=== PATIENT | male | born 1970 | race Caucasian/White ===

== ENCOUNTER 2023-09-27 20:21 | Inpatient (IN) | payer MEDICAID, OTHER ==
[~2023-09-27] VITALS: Ht 167.6 cm; Wt 108.4 kg
[2023-09-27 21:15] LABS: Basophils # (auto) 0.1 10 ^3/uL (0-0.2); Basophils % (auto) 0.9 % (0.0-2.0); Eosinophils # (auto) 0.3 10 ^3/uL (0-0.8); Hematocrit 48.1 % (41.0-53.0); Monocytes # (auto) 1.1 10 ^3/uL (0-1.3); White Blood Cell 13.2 10^3/uL (4.4-10.8)
[2023-09-27 21:16] LABS: Eosinophils % (auto) 2.2 % (0.0-7.0); Hemoglobin 15.6 g/dL (13.5-17.5); Lymphocytes # (auto) 1.3 10 ^3/uL (0.4-5.4); Lymphocytes % (auto) 9.7 % (10.0-50.0); Mean Corpuscular Hemoglobin 23.9 pg (28.0-32.0); Mean Corpuscular Hgb Conc. 32.3 g/dL (32.0-36.0); Monocytes % (auto) 8.3 % (0.0-12.0); Neutrophils # (auto) 10.4 10 ^3/uL (1.6-8.6); Neutrophils % (auto) 78.9 % (37.0-80.0); Nucleated Red Blood Cells % 0.2 %; Red Cell Distribution Width 18.2 % (11.8-14.3)
[2023-09-27 21:34] LABS: Alanine Aminotransferase 45 U/L (7-40); Albumin 4.1 g/dL (3.2-4.8); Alkaline Phosphatase 54 U/L (46-116); Anion Gap 9 (5-15); Aspartate Aminotransferase 28 U/L (13-40); BUN/Creatinine Ratio 6.3 (10.0-20.0); Bilirubin, Total 0.8 mg/dL (0.2-1.0); Blood Urea Nitrogen 6 mg/dL (9-23); Calcium 8.7 mg/dL (8.7-10.4); Carbon Dioxide 25 mmol/L (20-30); Chloride 107 mmol/L (98-107); Glucose 105 mg/dL (74-106); Lipase 28 U/L (12-53); Potassium 4.1 mmol/L (3.5-5.1); Sodium 141 mmol/L (136-145); Total Protein 6.7 g/dL (5.7-8.2)
[2023-09-27] MEDS: LIDOCAINE VISCOUS 2% 15ML UD PO ONE (23:21)
[2023-09-27] MEDS: MAALOX PLUS or MAALOX 30 ML PO ONE (23:21)
[2023-09-27] MEDS: ONDANSETRON HCL 4 MG/2 ML VIAL IM ONE (23:22)
[2023-09-27 23:30] VITALS: PULSE 92; RESP 16; O2SAT 98
[2023-09-28 01:25] LABS: Urine Bacteria None Seen /hpf (None Seen); Urine WBC None Seen /hpf (0 - 3)
[2023-09-28 01:32] LABS: Urine Blood Negative /uL (Negative); Urine Clarity Clear (Clear); Urine Color Light-Yellow (Yellow); Urine Hyaline Cast FEW /lpf (0 - 2); Urine Mucus FEW (None Seen); Urine Protein, UAD Negative (Negative); Urine Specific Gravity 1.016 (1.001-1.035); Urine Urobilinogen Normal (Negative); Urine pH 7.5 (5.0-9.0)
[2023-09-28] MEDS ORDERED: ZOFR4T PO ×2 (01:44→22:39)
[2023-09-28] MEDS ORDERED: ACET500T58 PO (01:44)
[2023-09-28] MEDS: HYDROcodone-ACET 5/325MG TAB PO ONE (01:52)
[2023-09-28] MEDS: MIDAZOLAM HCL 5 MG/ML-1ML VIAL IV ONE (05:37)
[2023-09-28] MEDS ORDERED: HYDROcodone-ACET 5/325MG TAB PO PRN (06:00)
[2023-09-28] MEDS ORDERED: NITROGLYCERIN 0.4 MG SL TAB SL PRN (06:00)
[2023-09-28] MEDS ORDERED: DOCUSATE SOD 100 MG CAP PO PRN (06:00)
[2023-09-28] MEDS ORDERED: metroNIDAZOLE 500MG/100ML 100 ML IV SCH (06:00)
[2023-09-28 06:56] LABS: Alanine Aminotransferase 43 U/L (7-40); Albumin 4.2 g/dL (3.2-4.8); Alkaline Phosphatase 56 U/L (46-116); Anion Gap 3 (5-15); Aspartate Aminotransferase 25 U/L (13-40); BUN/Creatinine Ratio 7.2 (10.0-20.0); Blood Urea Nitrogen 7 mg/dL (9-23); Calcium 8.6 mg/dL (8.5-10.1); Carbon Dioxide 31 mmol/L (20-30); Chloride 106 mmol/L (98-107); Glucose 93 mg/dL (74-106); Potassium 3.8 mmol/L (3.5-5.1); Sodium 140 mmol/L (136-145)
[2023-09-28 06:57] LABS: Bilirubin, Total 0.8 mg/dL (0.2-1.0); Total Protein 6.6 g/dL (5.7-8.2)
[2023-09-28 07:46] LABS: Basophils # (auto) 0.1 10 ^3/uL (0-0.2); Basophils % (auto) 0.5 % (0.0-2.0); Eosinophils # (auto) 0.3 10 ^3/uL (0-0.8); Eosinophils % (auto) 3.2 % (0.0-7.0); Hematocrit 45.9 % (41.0-53.0); Hemoglobin 14.7 g/dL (13.5-17.5); Lymphocytes # (auto) 1.9 10 ^3/uL (0.4-5.4); Lymphocytes % (auto) 17.1 % (10.0-50.0); Mean Corpuscular Hemoglobin 23.7 pg (28.0-32.0); Mean Corpuscular Hgb Conc. 32.1 g/dL (32.0-36.0); Mean Corpuscular Volume 73.8 fL (80.0-100.0); Monocytes # (auto) 1.2 10 ^3/uL (0-1.3); Monocytes % (auto) 10.7 % (0.0-12.0); Neutrophils # (auto) 7.5 10 ^3/uL (1.6-8.6); Neutrophils % (auto) 68.5 % (37.0-80.0); Nucleated Red Blood Cells % 0.3 %; Red Blood Cells 6.22 10^6/uL (4.5-5.90); White Blood Cell 10.9 10^3/uL (4.4-10.8)
[2023-09-28 08:15] VITALS: PULSE 82; RESP 18; O2SAT 96
[2023-09-28] MEDS ORDERED: metroNIDAZOLE 500 MG TAB PO SCH (14:00)
[2023-09-28] MEDS ORDERED: PIPERACILLIN-TAZOB 3.375GM 100 ML IV SCH (18:00)
[2023-09-28] MEDS: PIPERACILLIN-TAZOB 3.375GM 100 ML IV ONE (18:40)
[2023-09-28 19:30] VITALS: PULSE 88; RESP 16; O2SAT 96
[2023-09-28 22:00] VITALS: PULSE 61
[2023-09-28 22:24] VITALS: PULSE 85; RESP 18; O2SAT 95
[2023-09-28] MEDS ORDERED: OMEP1CAP70 PO (22:39)
[2023-09-29] VITALS (9 sets, daily range): BP systolic 123–161; BP diastolic 58–98; PULSE 73–91; RESP 16–18; TEMP 97.6–106.6; O2SAT 93–95
[2023-09-29] MEDS: ONDANSETRON HCL 4 MG/2 ML VIAL IV PRN (00:37)
[2023-09-29] MEDS: PIPERACILLIN-TAZOB 3.375GM 100 ML IV SCH (00:37)
[2023-09-29] MEDS: MORPHINE SULFATE INJ 2 MG/ml SYRG IV PRN (00:38)
[2023-09-29 06:12] LABS: Eosinophils # (auto) 0.6 10 ^3/uL (0-0.8); Hemoglobin 15.5 g/dL (13.5-17.5); Monocytes # (auto) 1.1 10 ^3/uL (0-1.3)
[2023-09-29 06:14] LABS: Basophils # (auto) 0 10 ^3/uL (0-0.2); Basophils % (auto) 0.4 % (0.0-2.0); Eosinophils % (auto) 5.8 % (0.0-7.0); Hematocrit 47.7 % (41.0-53.0); Lymphocytes # (auto) 1.6 10 ^3/uL (0.4-5.4); Lymphocytes % (auto) 15.9 % (10.0-50.0); Mean Corpuscular Hemoglobin 24.1 pg (28.0-32.0); Mean Corpuscular Hgb Conc. 32.4 g/dL (32.0-36.0); Mean Corpuscular Volume 74.4 fL (80.0-100.0); Monocytes % (auto) 10.2 % (0.0-12.0); Neutrophils % (auto) 67.7 % (37.0-80.0); Red Blood Cells 6.41 10^6/uL (4.5-5.90); Red Cell Distribution Width 18.2 % (11.8-14.3); White Blood Cell 10.3 10^3/uL (4.4-10.8)
[2023-09-29 06:19] LABS: Partial Thromboplastin Time 27.6 SEC (24.5-34.5); Prothrombin Time 10.6 sec (9.3-11.8)
[2023-09-29 06:21] LABS: Alanine Aminotransferase 46 U/L (7-40); Albumin 4.2 g/dL (3.2-4.8); Alkaline Phosphatase 54 U/L (46-116); Anion Gap 9 (5-15); Aspartate Aminotransferase 27 U/L (13-40); BUN/Creatinine Ratio 8.8 (10.0-20.0); Blood Urea Nitrogen 10 mg/dL (9-23); Calcium 9.2 mg/dL (8.7-10.4); Carbon Dioxide 29 mmol/L (20-30); Chloride 103 mmol/L (98-107); Glucose 77 mg/dL (74-106); Potassium 3.9 mmol/L (3.5-5.1); Sodium 141 mmol/L (136-145)
[2023-09-29 06:22] LABS: Total Protein 6.8 g/dL (5.7-8.2)
[2023-09-29] MEDS: SODIUM CHLORIDE 0.9% 1,000 ML IV SCH (16:00)
[2023-09-29] MEDS: ACETAMINOPHEN 325 MG TAB PO PRN (20:44)
[2023-09-29] MEDS: TEMAZEPAM 15 MG CAP PO ONE (22:55)
[2023-09-30] VITALS (9 sets, daily range): BP systolic 133–150; BP diastolic 79–94; PULSE 73–93; RESP 15–20; TEMP 97.5–98.8; O2SAT 91–95
[2023-09-30] MEDS ORDERED: GASTROGRAFIN 120 ML SOL ONE (15:09)
[2023-10-01] VITALS (10 sets, daily range): BP systolic 117–138; BP diastolic 78–86; PULSE 73–97; RESP 17–20; TEMP 97.1–99.1; O2SAT 92–96
[2023-10-02] VITALS (7 sets, daily range): BP systolic 125–144; BP diastolic 79–94; PULSE 68–89; RESP 18–20; TEMP 97.9–98.8; O2SAT 95–97
[2023-10-02] MEDS ORDERED: DOCU-265 PO (09:41)
== END 2023-10-02 13:30 | disposition home or self-care (01) | DRG 247 ==
LOC: ER 20:21 → EDBD 20:21 → TELE 09-28 05:58 → TELE-CENTR 09-28 22:22
PROVIDERS: ADMIT Internal Medicine; ATTEND Internal Medicine
PROC: 0D9670Z Drainage of Stomach with Drainage Device, Via Natural or Artificial Opening (ICD-10-PCS; principal; 2023-09-29)
DX: K56.600 Partial intestinal obstruction, unspecified as to cause (principal); A08.4 Viral intestinal infection, unspecified; D48.118 Desmoid tumor of other site; D72.829 Elevated white blood cell count, unspecified; E66.01 Morbid (severe) obesity due to excess calories; I10 Essential (primary) hypertension; Z86.19 Personal history of other infectious and parasitic diseases; Z68.38 Body mass index [BMI] 38.0-38.9, adult; Z79.899 Other long term (current) drug therapy
CPT/HCPCS: 36415; 70450; 71045; 74176; 74250; 80053; 81001; 83605; 83690; 83880; 85025; 85610; 85730; 93005; 96365; 96372; 96375; G0378; J2250; J2405; J2543

== ENCOUNTER 2024-02-07 20:24 | Inpatient (IN) | payer MEDICAID, SELFPAY ==
[~2024-02-07] VITALS: Ht 167.6 cm; Wt 107.6 kg
[~2024-02-07 20:24] MED LIST: DOCU-265 PO; OMEP1CAP70 PO; ZOFR4T PO
[2024-02-07] MEDS: ONDANSETRON HCL 4 MG/2 ML VIAL IV ONE (20:51)
[2024-02-07 20:56] LABS: Urine WBC None Seen /hpf (0 - 3)
[2024-02-07 21:09] LABS: Urine Bacteria FEW /hpf (None Seen); Urine Blood Negative /uL (Negative); Urine Clarity Clear (Clear); Urine Color Colorless (Yellow); Urine Protein, UAD Negative (Negative); Urine Specific Gravity 1.006 (1.001-1.035); Urine Urobilinogen Normal (Negative)
[2024-02-07 21:31] LABS: Basophils # (auto) 0.1 10 ^3/uL (0-0.2); Basophils % (auto) 0.9 % (0.0-2.0); Eosinophils # (auto) 0.6 10 ^3/uL (0-0.8); Eosinophils % (auto) 6.3 % (0.0-7.0); Hematocrit 52.8 % (41.0-53.0); Hemoglobin 17.4 g/dL (13.5-17.5); Lymphocytes # (auto) 2.4 10 ^3/uL (0.4-5.4); Mean Corpuscular Hgb Conc. 32.9 g/dL (32.0-36.0); Mean Corpuscular Volume 72.8 fL (80.0-100.0); Monocytes # (auto) 0.9 10 ^3/uL (0-1.3); Neutrophils # (auto) 5.6 10 ^3/uL (1.6-8.6); Neutrophils % (auto) 58.8 % (37.0-80.0); Nucleated Red Blood Cells % 0.1 %; Platelet Count (auto) 311 10^3/uL (140-450); Red Blood Cells 7.25 10^6/uL (4.5-5.90); Red Cell Distribution Width 19.4 % (11.8-14.3); White Blood Cell 9.5 10^3/uL (4.4-10.8)
[2024-02-07 21:52] LABS: Alanine Aminotransferase 47 U/L (7-40); Albumin 4.9 g/dL (3.2-4.8); Alkaline Phosphatase 60 U/L (46-116); Anion Gap 6 (5-15); Aspartate Aminotransferase 56 U/L (13-40); Bilirubin, Total 0.7 mg/dL (0.2-1.0); Blood Urea Nitrogen 10 mg/dL (9-23); Calcium 9.4 mg/dL (8.7-10.4); Carbon Dioxide 27 mmol/L (20-31); Chloride 108 mmol/L (98-107); Glucose 98 mg/dL (74-106); Lipase 38 U/L (12-53); Sodium 141 mmol/L (136-145)
[2024-02-07 21:53] LABS: Total Protein 7.6 g/dL (5.7-8.2)
[2024-02-07 22:10] LABS: BUN/Creatinine Ratio 8.5 (10.0-20.0)
[2024-02-07] MEDS: IOHEXOL 300 MG/ML 100ML BOTTLE IJ ONE (22:28)
[2024-02-07] MEDS: SODIUM CHLORIDE 0.9% 1,000 ML IV ONE ×2 (22:33→23:45)
[2024-02-07] MEDS: MORPHINE SULFATE 4 MG/ML SYR/VIAL IV ONE (23:45)
[2024-02-08] VITALS (7 sets, daily range): BP systolic 117–123; BP diastolic 71–81; PULSE 67–77; RESP 16–20; TEMP 97.8–98.3; O2SAT 93–97
[2024-02-08] MEDS: ONDANSETRON HCL 4 MG/2 ML VIAL IV ONE
[2024-02-08] MEDS ORDERED: hydrALAZINE HCL 20 MG/ML VL IV PRN ×2 (03:30→04:30)
[2024-02-08] MEDS ORDERED: ONDANSETRON HCL 4 MG/2 ML VIAL IV PRN (03:45)
[2024-02-08] MEDS: amLODIPine BESYLATE 5 MG TAB PO SCH (03:57)
[2024-02-08] MEDS: SENNA 8.6 MG TAB PO ONE (03:57)
[2024-02-08] MEDS: PANTOPRAZOLE 40 MG/10 ML VIAL INJ IV ONE (03:57)
[2024-02-08 05:14] LABS: COVID19 ANTIGEN SOFIA FIA NEGATIVE (NEGATIVE)
[2024-02-08 05:27] LABS: Basophils # (auto) 0.1 10 ^3/uL (0-0.2); Hemoglobin 16.5 g/dL (13.5-17.5); Monocytes # (auto) 0.8 10 ^3/uL (0-1.3); Neutrophils # (auto) 6.1 10 ^3/uL (1.6-8.6)
[2024-02-08 05:29] LABS: Basophils % (auto) 0.8 % (0.0-2.0); Eosinophils # (auto) 0.7 10 ^3/uL (0-0.8); Eosinophils % (auto) 7.2 % (0.0-7.0); Hematocrit 50.8 % (41.0-53.0); Lymphocytes # (auto) 1.9 10 ^3/uL (0.4-5.4); Lymphocytes % (auto) 20.3 % (10.0-50.0); Mean Corpuscular Hemoglobin 23.8 pg (28.0-32.0); Mean Corpuscular Hgb Conc. 32.5 g/dL (32.0-36.0); Mean Corpuscular Volume 73.3 fL (80.0-100.0); Monocytes % (auto) 8.3 % (0.0-12.0); Neutrophils % (auto) 63.4 % (37.0-80.0); Nucleated Red Blood Cells % 0.2 %; Platelet Count (auto) 277 10^3/uL (140-450); Red Blood Cells 6.93 10^6/uL (4.5-5.90); Red Cell Distribution Width 18.8 % (11.8-14.3); White Blood Cell 9.6 10^3/uL (4.4-10.8)
[2024-02-08 05:36] LABS: INR 1.1 (0.9-1.15); Partial Thromboplastin Time 29.6 SEC (24.5-34.5); Prothrombin Time 11.6 sec (9.3-11.8)
[2024-02-08 05:39] LABS: Alanine Aminotransferase 41 U/L (7-40); Albumin 4.4 g/dL (3.2-4.8); Alkaline Phosphatase 54 U/L (46-116); Anion Gap 5 (5-15); Aspartate Aminotransferase 47 U/L (13-40); BUN/Creatinine Ratio 8.6 (10.0-20.0); Blood Urea Nitrogen 9 mg/dL (9-23); Carbon Dioxide 26 mmol/L (20-31); Chloride 109 mmol/L (98-107); Glucose 94 mg/dL (74-106); Lipase 34 U/L (12-53); Potassium 4.1 mmol/L (3.5-5.1); Sodium 140 mmol/L (136-145)
[2024-02-08 05:40] LABS: Total Protein 6.9 g/dL (5.7-8.2)
[2024-02-08] MEDS: PANTOPRAZOLE 40 MG/10 ML VIAL INJ IV SCH (10:37)
[2024-02-08] MEDS: KETOROLAC TROMETH 30 MG/ML 1ML VIAL IV ONE (18:49)
[2024-02-08] MEDS ORDERED: SENNA 8.6 MG TAB PO SCH (22:00)
[2024-02-09] VITALS (8 sets, daily range): BP systolic 117–148; BP diastolic 73–90; PULSE 69–94; RESP 16–20; TEMP 97.5–98.1; O2SAT 92–95
[2024-02-09] MEDS: ACETAMINOPHEN 500 MG TAB PO PRN (13:32)
[2024-02-09] MEDS ORDERED: AML5T PO (14:44)
[2024-02-09 16:10] LABS: Basophils # (auto) 0 10 ^3/uL (0-0.2); Lymphocytes # (auto) 1.3 10 ^3/uL (0.4-5.4); Neutrophils # (auto) 6.2 10 ^3/uL (1.6-8.6); Nucleated Red Blood Cells % 0.2 %
[2024-02-09 16:12] LABS: Basophils % (auto) 0.4 % (0.0-2.0); Eosinophils # (auto) 0.6 10 ^3/uL (0-0.8); Eosinophils % (auto) 6.2 % (0.0-7.0); Hemoglobin 18.4 g/dL (13.5-17.5); Lymphocytes % (auto) 14.9 % (10.0-50.0); Mean Corpuscular Hemoglobin 23.6 pg (28.0-32.0); Mean Corpuscular Hgb Conc. 32.3 g/dL (32.0-36.0); Mean Corpuscular Volume 73.2 fL (80.0-100.0); Monocytes # (auto) 0.8 10 ^3/uL (0-1.3); Monocytes % (auto) 8.7 % (0.0-12.0); Neutrophils % (auto) 69.8 % (37.0-80.0); Platelet Count (auto) 342 10^3/uL (140-450); Red Blood Cells 7.79 10^6/uL (4.5-5.90); Red Cell Distribution Width 19.5 % (11.8-14.3); White Blood Cell 8.8 10^3/uL (4.4-10.8)
[2024-02-09 16:31] LABS: Alanine Aminotransferase 58 U/L (7-40); Alkaline Phosphatase 67 U/L (46-116); Anion Gap 7 (5-15); Aspartate Aminotransferase 52 U/L (13-40); Blood Urea Nitrogen 12 mg/dL (9-23); Calcium 10.1 mg/dL (8.7-10.4); Carbon Dioxide 27 mmol/L (20-31); Chloride 107 mmol/L (98-107); Glucose 85 mg/dL (74-106); Potassium 4.2 mmol/L (3.5-5.1); Sodium 141 mmol/L (136-145); Total Protein 8.2 g/dL (5.7-8.2)
[2024-02-09] MEDS: SODIUM CHLORIDE 0.9% 500 ML IV ONE (17:45)
[2024-02-10 11:08] LABS: T3 Total 1.02 ng/mL (0.60-1.81)
[2024-02-10 11:09] LABS: Free T4 (Free Thyroxine) 1.22 ng/dL (0.89-1.76)
== END 2024-02-09 18:55 | disposition home or self-care (01) | DRG 566 ==
LOC: ER 20:24 → WEST WING 02-08 03:44 → OVERFLOW 02-08 03:44 → WEST WING 02-08 10:05
PROVIDERS: ADMIT Internal Medicine; ATTEND Internal Medicine
PROC: 0D9670Z Drainage of Stomach with Drainage Device, Via Natural or Artificial Opening (ICD-10-PCS; principal; 2024-02-08)
DX: D48.114 Desmoid tumor, intraabdominal (principal); K27.9 Peptic ulcer, site unspecified, unspecified as acute or chronic, without hemorrhage or perforation; B96.81 Helicobacter pylori [H. pylori] as the cause of diseases classified elsewhere; I10 Essential (primary) hypertension; Z20.822 Contact with and (suspected) exposure to COVID-19; R74.8 Abnormal levels of other serum enzymes; I16.0 Hypertensive urgency; E66.01 Morbid (severe) obesity due to excess calories; Z68.38 Body mass index [BMI] 38.0-38.9, adult; K42.9 Umbilical hernia without obstruction or gangrene; F10.20 Alcohol dependence, uncomplicated; Z82.49 Family history of ischemic heart disease and other diseases of the circulatory system; Z82.3 Family history of stroke; Y90.9 Presence of alcohol in blood, level not specified
CPT/HCPCS: 36415; 71045; 74177; 74250; 80053; 81001; 82306; 82607; 83036; 83690; 84439; 84443; 84480; 85025; 85610; 85730; 87426; 96360; 96361; 99291; G0378; J1885; J2405; J2470

== ENCOUNTER 2024-02-15 20:20 | Inpatient (IN) | payer SELFPAY ==
[~2024-02-15] VITALS: Ht 167.6 cm; Wt 100.9 kg
[~2024-02-15 20:20] MED LIST changes: +AML5T PO
--- NOTE | 2024-02-15 20:52 | ED.PDOC ---
GI ASSESSMENT HPI Comments 53 year old male came to ER via EMS due to abdominal pain. 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 Was admitted here last Feb 08, 2024 for the same. Patient being followed by a surgeon at [facility]. Patient few hours ago started having diffuse abdominal pain with episodes of nausea and vomiting again Chief Complaint: Abdominal Pain Time Seen by MD: 20:21 Primary Care Provider: Dr. Pop Allergies: Coded Allergies: Latex (Verified Allergy, Unknown, 02/15/24) Home Meds Active Scripts Amlodipine Besylate (NORVASC TABLET) 5 Mg Tb, 5 MG PO DAILY for 30 Days, #30 TAB 2 Refills Prov:ALAINA BAILEY RESIDENT 02/09/24 Docusate Sodium (Docusate Sodium) 100 Mg Cap, 100 MG PO BID for 10 Days, #20 CAP 1 Refill Prov:MO RAYMOND DO 10/02/23 Reported Medications Omeprazole (Omeprazole Dr) 20 Mg Cap, 1 CAP PO DAILY 09/28/23 Ondansetron Odt 4MG Tab (ZOFRAN PO) 4 Mg Tb, 1 TAB PO BID PRN for NAUSEA / VOMITING 09/28/23 Mode of Arrival: EMS Past Medical History PAST MEDICAL HISTORY: HTN Past Medical History (Other): 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 Surgical History: Hernia Repair Family History Family History: Reviewed,noncontributory to illness Social History Smoker: Non-Smoker Alcohol: Denies ETOH Use Drugs: Denies Drug Use Lives In: Home Constitutional: denies: chills, diaphoresis, fatigue, fever, malaise, sweats, weakness, others EENTM: denies: blurred vision, double vision, ear bleeding, ear discharge, ear drainage, ear pain, ear ringing, eye pain, eye redness, hearing loss, mouth pain, mouth swelling, nasal discharge, nose bleeding, nose congestion, nose pain, photophobia, tearing, throat pain, throat swelling, voice changes, others Respiratory: denies: cough, hemoptysis, orthopnea, SOB at rest, shortness of breath, SOB with excertion, stridor, wheezing, others Cardiovascular: denies: chest pain, dizzy spells, diaphoresis, Dyspnea on exertion, edema, irregular heart beat, left arm pain, lightheadedness, palpi tations, PND, syncope, others Gastrointestinal: reports: abdominal pain, nausea, vomiting; denies: abdomen distended, blood streaked bowels, constipated, diarrhea, dysphagia, difficulty swallowing, hematemesis, melena, poor appetite, poor fluid intake, rectal bleeding, rectal pain, others Genitourinary: denies: burning, dysuria, flank pain, frequency, hematuria, incontinence, penile discharge, penile sore, pain, testicle pain, testicle swelling, urgency, others Neurological: denies: dizziness, fainting, headache, left sided numbness, left sided weakness, numbness, paresthesia, pre-existing deficit, right sided numbness, right sided weakness, seizure, speech problems, tingling, tremors, weakness, others Musculoskeletal: denies: back pain, gout, joint pain, joint swelling, muscle pain, muscle stiffness, neck pain, others Integumetry: denies: bruises, change in color, change in hair/nails, dryness, laceration, lesions, lumps, rash, wounds, others Allergic/Immunocompromised: denies: Difficulty Healing, Frequent Infections, Hives, Itching, others Hematologic/Lymphatic: denies: anemia, blood clots, easy bleeding, easy bruising, swollen glands, others Endocrine: denies: excessive hunger, excessive sweating, excessive thirst, excessive urination, flushing, intolerance to cold, intolerance to heat, unexplained weight gain, unexplained weight loss, others Psychiatric: denies: anxiety, bipolar disorder, depression, hopeless, panic disorder, schizophrenia, sleepless, suicidal, others Physical Exam General Appearance: No Apparent Distress, Normal HEENT: Normal ENT Inspection, Pharynx Normal, TMs Normal Neck: Full Range of Motion, Non-Tender, Normal, Normal Inspection Respiratory: Chest Non-Tender, Lungs Clear, No Accessory Muscle Use, No Respiratory Distress, Normal Breath Sounds Cardiovascular: No Edema, No JVD, No Murmur, No Gallop, Normal Peripheral Pulses, Regular Rate/Rhythm Breast Exam: Deferred Gastrointestinal: Diffuse, Distended, No Organomegaly, No Pulsatile Mass, Normal Bowel Sounds, Soft, Tenderness Genitalia: Deferred Pelvic: Deferred Rectal: Deferred Extremities: No calf tenderness, Normal capillary refill, Normal inspection, Normal range of motion, Non-tender, No pedal edema Musculoskeletal : Apperance: Normal Neurologic: Alert, 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 Was a procedure done?: No GI differential Dx Differential Diagnosis: Bowel Obstruction, Diverticular disease, Gastritis/PUD, Gastroenteritis, Inflammatory BD, Dehydration X-Ray, Labs, Meds, VS Vital Signs Date Time Temp Pulse Resp B/P (MAP) Pulse Ox O2 Delivery O2 Flow Rate FiO2 02/16/24 00:23 65 16 116/83 02/15/24 21:22 72 16 142/93 02/15/24 21:00 74 18 98 Room Air* 0 21 02/15/24 21:00 74 18 154/98 (116) 98 02/15/24 20:59 72 18 154/98 02/15/24 20:29 97.6 88 20 135/93 (107) 95 Lab Test 02/15/24 20:34 Range/Units White Blood Count 15.9 #H 4.4-10.8 10^3/uL Red Blood Count 7.79 H 4.5-5.90 10^6/uL Hemoglobin 18.1 H 13.5-17.5 g/dL Hematocrit 58.2 H 41.0-53.0 % Mean Corpuscular Volume 74.7 L 80.0-100.0 fL Mean Corpuscular Hemoglobin 23.2 L 28.0-32.0 pg Mean Corpuscular Hemoglobin Concent 31.1 L 32.0-36.0 g/dL Red Cell Distribution Width 19.7 H 11.8-14.3 % Platelet Count 291 140-450 10^3/uL Mean Platelet Volume 8.2 6.9-10.8 fL Neutrophils (%) (Auto) 85.7 H 37.0-80.0 % Lymphocytes (%) (Auto) 7.0 L 10.0-50.0 % Monocytes (%) (Auto) 4.8 0.0-12.0 % Eosinophils (%) (Auto) 2.2 0.0-7.0 % Basophils (%) (Auto) 0.3 0.0-2.0 % Neutrophils # (Auto) 13.6 H 1.6-8.6 10 ^3/uL Lymphocytes # (Auto) 1.1 0.4-5.4 10 ^3/uL Monocytes # (Auto) 0.8 0-1.3 10 ^3/uL Eosinophils # (Auto) 0.4 0-0.8 10 ^3/uL Basophils # (Auto) 0 0-0.2 10 ^3/uL Nucleated Red Blood Cells 0.1 % Sodium Level 139 136-145 mmol/L Potassium Level 4.8 3.5-5.1 mmol/L Chloride Level 106 98-107 mmol/L Carbon Dioxide Level 26 20-31 mmol/L Anion Gap 7 5-15 Blood Urea Nitrogen 9 9-23 mg/dL Creatinine 1.20 0.700-1.30 mg/dL Glomerular Filtration Rate Calc 73 >90 mL/min BUN/Creatinine Ratio 7.5 L 10.0-20.0 Serum Glucose 99 74-106 mg/dL Calcium Level 10.0 8.7-10.4 mg/dL Total Bilirubin 1.3 H 0.2-1.0 mg/dL Aspartate Amino Transferase (AST) 29 13-40 U/L Alanine Aminotransferase (ALT) 49 H 7-40 U/L Alkaline Phosphatase 63 46-116 U/L Total Protein 8.0 5.7-8.2 g/dL Albumin 5.2 H 3.2-4.8 g/dL Lipase 33 12-53 U/L Current Medications Medications (Trade) Dose Ordered Sig/Charles Route Start Time Stop Time Status Last Admin Sodium Chloride 1,000 ml @ 1,000 mls/hr Q1H ONCE IV 02/15/24 20:30 02/15/24 21:29 DC 02/15/24 20:53 Ondansetron HCl (Zofran) 4 mg ONCE ONCE IV 02/15/24 20:30 02/15/24 20:31 DC 02/15/24 20:59 Morphine Sulfate 4 mg ONCE ONCE IV 02/15/24 20:30 02/15/24 20:31 DC 02/15/24 20:59 Ondansetron HCl (Zofran) 4 mg ONCE ONCE IV 02/15/24 23:45 02/15/24 23:52 DC 02/16/24 00:24 Morphine Sulfate 4 mg ONCE ONCE IV 02/15/24 23:45 02/15/24 23:52 DC 02/16/24 00:23 Time of 1ST Reevaluation: 20:50 Reevaluation 1ST: Unchanged Patient Education/Counseling: Diagnosis, Treatment Family Education/Counseling: No Family Present Departure 1 Departure Time of Disposition: 00:27 (Patient presented with abdominal pain that was concerning for possible appendicits, gastritis, cholecystitis, colitis, gastroenteritis, sbo, or orther possible surgical emergency. Data: 1. I ordered and reviewed the result of at least 3 labs including a CBC, BMP, and Urinalysis. 2. I independently interpreted the following tests: CT Abdoment and Pelvis is concerning for small bowel obstruction .Risk:This patient has a high risk of morbidity due to further diagnostic testing or treatment and may suffer from an acute abdominal process disorder. Workup reveals small-bowel obstruction and patient should be admitted for further workup. and possible expert consultation. ) Impression: Primary Impression: Small bowel obstruction Additional Impression: Abdominal pain Qualified Codes: R10.84 - Generalized abdominal pain Disposition: ADMITTED INPATIENT Admit to: Med Surg Condition: Guarded Critical Care Note Critical Care Time?: Yes Critical care comment: Intractable abdominal pain Authorized and Performed by: Katelyn Soriano MD Total critical care time: Approximately 48 minutes Due to a high probability of clinically significant, life threatening deterioration, the patient required my highest level of preparedness to intervene emergently and I personally spent this critical care time directly and personally managing the patient. This critical care time included obtaining a history; examining the patient; pulse oximetry; ordering and review of studies; arranging urgent treatment with development of a management plan; evaluation of patient's response to treatment; frequent reassessment; and, discussions with other providers. This critical care time was performed to assess and manage the high probability of imminent, life-threatening deterioration that could result in multi-organ failure. It was exclusive of separately billable procedures and treating other patients and teaching time. Please see my other sections and the rest of the note for further information on patient assessment and treatment. Stability Stability form required: No Heart Score Heart Score: Heart Score Response (Comments) Value History N/A 0 EKG N/A 0 Age N/A 0 Risk Factors N/A 0 Troponin N/A 0 Total 0 I personally scribed for KATELYN SORIANO MD ([email or web address]) on 02/15/24 at 20:52. Electronically submitted by Sonny Felipe ([facility]). KATELYN SORIANO MD Feb 15, 2024 20:52
[2024-02-15] MEDS: SODIUM CHLORIDE 0.9% 1,000 ML IV ONE (20:53)
[2024-02-15] MEDS: ONDANSETRON HCL 4 MG/2 ML VIAL IV ONE (20:59)
[2024-02-15] MEDS: MORPHINE SULFATE 4 MG/ML SYR/VIAL IV ONE (20:59)
[2024-02-15 21:00] VITALS: PULSE 74; RESP 18; O2SAT 98
[2024-02-15 21:06] LABS: Hemoglobin 18.1 g/dL (13.5-17.5); Lymphocytes # (auto) 1.1 10 ^3/uL (0.4-5.4); Mean Corpuscular Volume 74.7 fL (80.0-100.0); Nucleated Red Blood Cells % 0.1 %
[2024-02-15 21:07] LABS: Basophils # (auto) 0 10 ^3/uL (0-0.2); Basophils % (auto) 0.3 % (0.0-2.0); Eosinophils # (auto) 0.4 10 ^3/uL (0-0.8); Eosinophils % (auto) 2.2 % (0.0-7.0); Mean Corpuscular Hemoglobin 23.2 pg (28.0-32.0); Mean Corpuscular Hgb Conc. 31.1 g/dL (32.0-36.0); Monocytes # (auto) 0.8 10 ^3/uL (0-1.3); Monocytes % (auto) 4.8 % (0.0-12.0); Neutrophils # (auto) 13.6 10 ^3/uL (1.6-8.6); Neutrophils % (auto) 85.7 % (37.0-80.0); Platelet Count (auto) 291 10^3/uL (140-450); Red Blood Cells 7.79 10^6/uL (4.5-5.90); Red Cell Distribution Width 19.7 % (11.8-14.3); White Blood Cell 15.9 10^3/uL (4.4-10.8)
--- NOTE | 2024-02-15 21:08 | DVH ---
EXAM: XY CHEST PORTABLE TECHNIQUE: Single frontal chest radiograph CLINICAL HISTORY: epigastric pain COMPARISON: XY CHEST XRAY 1 VIEW on DOS: 02/08/24, XY CHEST XRAY 1 VIEW on DOS: 09/28/23 Findings/Impression: Frontal chest radiograph demonstrates no acute osseous or superficial soft tissue abnormalities. The trachea is midline. The cardiac silhouette and mediastinum are within normal limits. Mild low lung volumes. No pneumothorax, pleural effusions, or consolidations.
[2024-02-15 21:12] LABS: Hematocrit 58.2 % (41.0-53.0)
[2024-02-15 21:22] LABS: Alanine Aminotransferase 49 U/L (7-40); Albumin 5.2 g/dL (3.2-4.8); Alkaline Phosphatase 63 U/L (46-116); Anion Gap 7 (5-15); Aspartate Aminotransferase 29 U/L (13-40); BUN/Creatinine Ratio 7.5 (10.0-20.0); Bilirubin, Total 1.3 mg/dL (0.2-1.0); Blood Urea Nitrogen 9 mg/dL (9-23); Carbon Dioxide 26 mmol/L (20-31); Chloride 106 mmol/L (98-107); Glucose 99 mg/dL (74-106); Lipase 33 U/L (12-53); Potassium 4.8 mmol/L (3.5-5.1); Sodium 139 mmol/L (136-145)
[2024-02-15] MEDS: IOHEXOL 300 MG/ML 100ML BOTTLE IJ ONE (21:46)
--- NOTE | 2024-02-15 22:30 | DVH ---
CLINICAL HISTORY: abdominal pain TECHNIQUE: CT of the abdomen and pelvis was performed with intravenous contrast. This exam was perfor med according to our departmental dose optimization program. Up-to-date CT equipment and radiation do se reduction techniques are utilized as appropriate. WID: COMPARISON: CT CT AB PEL WITH IV CON ONLY on DOS: 02/07/24 FINDINGS: Lower Thorax: Normal-sized heart without pericardial effusion. The lung bases are clear. Liver and Biliary system: Unremarkable. Spleen: Unremarkable. Adrenal Glands and Kidneys: Unremarkable. Pancreas and Retroperitoneum: Unremarkable. Aorta and Major Vessels: Aortoiliac vessels are patent and normal caliber with mild calcified atheros clerotic plaque. Bowel, Mesentery and Peritoneal space: Normal appendix. Normal caliber large bowel. There is a segmen t of dilated mid to distal small bowel with transition in the mid abdomen to the left of midline on s eries 601 image 31. There is focal wall thickening of the small bowel at the transition point ( serie s 602, image 91) . There is a central mesenteric mass with lobulated and spiculated margins and conta ining calcification again noted measuring 3.9 x 2.8 cm on series 2, image 62. There is no free air o r loculated fluid collection. There is mild ascites within an umbilical hernia. There is no pneumatos is intestinalis . Pelvis: Unremarkable. Abdominal wall and Osseous Structures: There is a small umbilical hernia containing mesenteric fat an d mild ascites. There are surgical clips and soft tissue from prior bilateral inguinal hernia repair. Mild lower thoracic and lumbar spondylosis. No destructive osseous lesion. IMPRESSION: 1. Persistent small-bowel obstruction of a mid to distal segment of small bowel with transition point in the mid abdomen to the left of midline. There is focal wall thickening at transition point for wh ich a small-bowel mass is a possibility. 2. 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
[2024-02-16] VITALS (7 sets, daily range): BP systolic 143–145; BP diastolic 69–82; PULSE 69–97; RESP 18–21; TEMP 98.3–98.8; O2SAT 90–98
[2024-02-16] MEDS: MORPHINE SULFATE 4 MG/ML SYR/VIAL IV ONE (00:23)
[2024-02-16] MEDS: ONDANSETRON HCL 4 MG/2 ML VIAL IV ONE (00:24)
[2024-02-16] MEDS ORDERED: ACETAMINOPHEN 325 MG TAB PO PRN (00:45)
[2024-02-16] MEDS ORDERED: HYDROcodone-ACET 5/325MG TAB PO PRN (00:45)
[2024-02-16] MEDS ORDERED: hydrALAZINE HCL 20 MG/ML VL IV PRN (00:45)
[2024-02-16] MEDS: cefTRIAXone 1GM/50ML D5W 50 ML IV ONE (01:26)
[2024-02-16] MEDS: SODIUM CHLORIDE 0.9% 1,000 ML IV SCH ×2 (01:26→11:15)
[2024-02-16] MEDS: metroNIDAZOLE 500MG/100ML 100 ML IV ONE (02:03)
--- NOTE | 2024-02-16 03:27 | DVH ---
Examination: CXR1 Clinical Indication: NGT-PLACEMENT Comparison: None. Technique: Frontal radiograph of the chest was obtained. Findings: NG tube noted at appropriate position with tip in stomach. No obvious pulmonary infiltrates or pleural effusion. Chronic lung changes seen. There is no pneumothorax. The cardio mediastinal silhouette appears enlarged. No acute osseous pathology. Degenerative changes noted in visualized spine. Impression: 1. No obvious pulmonary infiltrates or pleural effusion. 2. Mild cardiomegaly. 3. Clinical correlation with follow-up radiograph is recommended. Electronically Signed 02/16/2024 03:19 Debra Azul
--- NOTE | 2024-02-16 05:56 | DVHHP2 ---
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 Patient was admitted here last February 08, 2024 for the same symptoms, being followed by a surgeon at [facility]. Patient reports symptoms progressively get worse with diffuse abdominal pain, associated nausea, vomiting, rating pain 10/10 numeric scale, getting worse that prompted this visit. Patient was seen and evaluated in the ED, laboratory data shows WBC 15.9, platelets 291, sodium 131, potassium 4.8, BUN 9, creatinine 1.20, glucose 99, albumin 5.2, lipase 33, total bilirubin 1.3, AST 29, ALT 49, blood pressure 142/93, pulse 72, temperature 97.6 F, O2 saturation 98% on room air. Abdomen/pelvis CT revealing persistent small-bowel obstruction of a mid to distal segment of small bowel with transition point in the mid abdomen to the left of midline; there is focal wall thickening at transition point for which a small bowel mass is a possibility; mesenteric mass with lobulated and spiculated portions and containing calcification which could reflect a carcinoid tumor metastasis. Patient was started on IV antibiotic regimen Flagyl, please see medication orders section in the computer. On my assessment, patient denied chest pain, no headache, no dizziness, no diaphoresis, no shortness of breath, no nausea, no vomiting, no fever, no chills. Patient was admitted for further evaluation and medical management. Past Medical History HTN, 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 Past Surgical History Hernia Repair Family History Reviewed, noncontributory to the management of this case. Past Social History The patient lives at home, denies smoking, alcohol or illicit drugs abuse. Review of Systems Constitutional: No: Fever, Chills, Sweats, Weakness, Malaise, Other Eyes: No: Pain, Vision change, Conjunctivae inflammation, Eyelid inflammation, Other, Redness ENT: No: Ear pain, Ear discharge, Nose pain, Nose discharge, Nose congestion, Mouth pain, Mouth swelling, Throat pain, Throat swelling, Other Respiratory: No: Cough, Dry, Shortness of breath, SOB with excertion, Wheezing, Hemoptysis, Pleuritic Pain, Sputum, Wheezing, Other Cardiovascular: No: Chest Pain, Palpitations, Orthopnea, Paroxysmal Noc. Dyspnea, Edema, Lt Headedness, Other Gastrointestinal: Nausea, Vomiting, Abdominal Pain; No: Diarrhea, Constipation, Melena, Hematochezia, Other Genitourinary: No Dysuria, No Frequency, No Incontinence, No Hematuria, No Retention, No Other Musculoskeletal: No: other, neck pain, shoulder pain, arm pain, back pain, hand pain, leg pain, foot pain Skin: No: Rash, Lesions, Jaundice, Bruising, Other Neurological: No: Weakness, Numbness, Incoordination, Change in speech, Confusion, Seizures, Other Allergies: Coded Allergies: Latex (Verified Allergy, Unknown, 02/15/24) Medications Current Medications Medications Dose Ordered Sig/Charles Route Start Time Stop Time Status Last Admin Dose Admin Hydralazine HCl 10 mg Q6HP PRN IV 02/16/24 00:45 Ceftriaxone Sodium 50 ml @ 100 mls/hr DAILY@2100 IV 02/16/24 21:00 Metronidazole 100 ml @ 100 mls/hr Q8HR IV 02/16/24 06:00 Sodium Chloride 1,000 ml @ 60 mls/hr [id number] IV 02/16/24 00:45 02/16/24 01:26 60 MLS/HR Acetaminophen/ Hydrocodone Bitart 1 tab Q4HP PRN PO 02/16/24 00:45 Ondansetron HCl 4 mg Q4HP PRN IV 02/16/24 00:45 Acetaminophen 650 mg Q6HP PRN PO 02/16/24 00:45 Morphine Sulfate 2 mg Q4HPRN PRN IV 02/16/24 00:45 Exam Vital Signs Vital Signs Date Time Temp Pulse Resp B/P (MAP) Pulse Ox O2 Delivery O2 Flow Rate FiO2 02/16/24 03:27 74 19 153/86 02/16/24 02:00 90 02/15/24 21:00 Room Air* 0 21 02/15/24 20:29 97.6 General Appearance: Alert, Oriented X3, Cooperative, No acute distress HEENT: Atraumatic, PERRLA, EOMI, Mucous membr. moist/pink Respiratory: Normal air movement Cardiovascular: Regular rate, Normal S1, Normal S2, No murmurs Abdominal: Normal bowel sounds, Soft, No hepatospenomegaly, No masses, Other (Reports tenderness) Extremities: No clubbing, No cyanosis, No edema, Normal pulses, No tenderness/swelling Skin: No rashes, No breakdown, No significant lesion Neuro: Normal gait, Normal speech, Strength at 5/5 X4 ext, Normal tone, Sensation intact, Cranial nerves 3-12 NL, Reflexes 2+ Psych/Mental Status: Mental status NL, Mood NL Labs/Xrays Labs Test 02/15/24 20:34 Range/Units White Blood Count 15.9 #H 4.4-10.8 10^3/uL Red Blood Count 7.79 H 4.5-5.90 10^6/uL Hemoglobin 18.1 H 13.5-17.5 g/dL Hematocrit 58.2 H 41.0-53.0 % Mean Corpuscular Volume 74.7 L 80.0-100.0 fL Mean Corpuscular Hemoglobin 23.2 L 28.0-32.0 pg Mean Corpuscular Hemoglobin Concent 31.1 L 32.0-36.0 g/dL Red Cell Distribution Width 19.7 H 11.8-14.3 % Platelet Count 291 140-450 10^3/uL Mean Platelet Volume 8.2 6.9-10.8 fL Neutrophils (%) (Auto) 85.7 H 37.0-80.0 % Lymphocytes (%) (Auto) 7.0 L 10.0-50.0 % Monocytes (%) (Auto) 4.8 0.0-12.0 % Eosinophils (%) (Auto) 2.2 0.0-7.0 % Basophils (%) (Auto) 0.3 0.0-2.0 % Neutrophils # (Auto) 13.6 H 1.6-8.6 10 ^3/uL Lymphocytes # (Auto) 1.1 0.4-5.4 10 ^3/uL Monocytes # (Auto) 0.8 0-1.3 10 ^3/uL Eosinophils # (Auto) 0.4 0-0.8 10 ^3/uL Basophils # (Auto) 0 0-0.2 10 ^3/uL Nucleated Red Blood Cells 0.1 % Sodium Level 139 136-145 mmol/L Potassium Level 4.8 3.5-5.1 mmol/L Chloride Level 106 98-107 mmol/L Carbon Dioxide Level 26 20-31 mmol/L Anion Gap 7 5-15 Blood Urea Nitrogen 9 9-23 mg/dL Creatinine 1.20 0.700-1.30 mg/dL Glomerular Filtration Rate Calc 73 >90 mL/min BUN/Creatinine Ratio 7.5 L 10.0-20.0 Serum Glucose 99 74-106 mg/dL Calcium Level 10.0 8.7-10.4 mg/dL Total Bilirubin 1.3 H 0.2-1.0 mg/dL Aspartate Amino Transferase (AST) 29 13-40 U/L Alanine Aminotransferase (ALT) 49 H 7-40 U/L Alkaline Phosphatase 63 46-116 U/L Total Protein 8.0 5.7-8.2 g/dL Albumin 5.2 H 3.2-4.8 g/dL Lipase 33 12-53 U/L PATIENT: TESSA MIELS ACCT: [id number] UNIT: [id number] : 1970 LOC: ER ROOM / BED: / AGE / SEX: 53 / M ADM STATUS: REG ER SERVICE 20 ORDERING PHYSICIAN: KATELYN SORIANO MD PROCEDURE(s): ABPLIV - CT AB PEL WITH IV CON ONLY REASON: abdominal pain ORDER NUMBER(s): [id number], ACCESSION NUMBER(s): [id number] CLINICAL HISTORY: abdominal pain TECHNIQUE: CT of the abdomen and pelvis was performed with intravenous contrast. This exam was performed according to our departmental dose optimization program. Up-to-date CT equipment and radiation dose reduction techniques are utilized as appropriate. WID: COMPARISON: CT CT AB PEL WITH IV CON ONLY on DOS: 02/07/24 FINDINGS: Lower Thorax: Normal-sized heart without pericardial effusion. The lung bases are clear. Liver and Biliary system: Unremarkable. Spleen: Unremarkable. Adrenal Glands and Kidneys: Unremarkable. Pancreas and Retroperitoneum: Unremarkable. Aorta and Major Vessels: Aortoiliac vessels are patent and normal caliber with mild calcified atherosclerotic plaque. Bowel, Mesentery and Peritoneal space: Normal appendix. Normal caliber large bowel. There is a segment of dilated mid to distal small bowel with transition in the mid abdomen to the left of midline on series 601 image 31. There is focal wall thickening of the small bowel at the transition point ( series 602, image 91) . There is a central mesenteric mass with lobulated and spiculated margins and containing calcification again noted measuring 3.9 x 2.8 cm on series 2, image 62. There is no free air or loculated fluid collection. There is mild ascites within an umbilical hernia. There is no pneumatosis intestinalis . Pelvis: Unremarkable. Abdominal wall and Osseous Structures: There is a small umbilical hernia containing mesenteric fat and mild ascites. There are surgical clips and soft tissue from prior bilateral inguinal hernia repair. Mild lower thoracic and lumbar spondylosis. No destructive osseous lesion. IMPRESSION: 1. Persistent small-bowel obstruction of a mid to distal segment of small bowel with transition point in the mid abdomen to the left of midline. There is focal wall thickening at transition point for which a small-bowel mass is a possibility. 2. 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 ORDERING PHYSICIAN: KATELYN SORIANO MD PROCEDURE(s): CXR1 - CHEST XRAY 1 VIEW REASON: NGT-PLACEMENT ORDER NUMBER(s): [id number], ACCESSION NUMBER(s): [id number] Examination: CXR1 Clinical Indication: NGT-PLACEMENT Comparison: None. Technique: Frontal radiograph of the chest was obtained. Findings: NG tube noted at appropriate position with tip in stomach. No obvious pulmonary infiltrates or pleural effusion. Chronic lung changes seen. There is no pneumothorax. The cardio mediastinal silhouette appears enlarged. No acute osseous pathology. Degenerative changes noted in visualized spine. Impression: 1. No obvious pulmonary infiltrates or pleural effusion. 2. Mild cardiomegaly. 3. Clinical correlation with follow-up radiograph is recommended. Assessment/Plan Assessment/Plan Small bowel obstruction Abdominal pain Leukocytosis, unspecified Generalized abdominal pain Plan 1. Admit to telemetry unit 2. Breathing treatment 3. Pain control management 4. IV antibiotic management 5. Management of fluids and electrolytes 6. Consultation for surgery/hospitalist 7. Diagnostic test abdomen/pelvis CT 8. DVT prophylaxis-on SCDs 9. Repeat labs CBC, CMP in a.m. 10. Home medication reviewed and reconciled 11. Continue with current medical management 12. Treatment plan discussed with patient and RN. Patient verbalized understanding. Plan discussed with: Patient, Other (RN) My Orders Orders - OLYA LUJAN DNP Procedure Category Date Status Time * Surgical Consult CONS 02/16/24 Transmitted Hydralazine Injection PHA 02/16/24 In Process (Apresoline Inject 00:45 Ceftriaxone 1gm/50ml PHA 02/16/24 In Process D5w (Rocephin) 21:00 Metronidazole PHA 02/16/24 In Process 500mg/100ml (Flagyl 06:00 Allergies MICHAEL 02/16/24 In Process 00:41 Code Status CODE 02/16/24 Transmitted 00:41 Sodium Chloride 0.9% PHA 02/16/24 In Process 00:45 Oxygen Per Hour RT 02/16/24 Transmitted 00:41 Hydrocodone-Acet PHA 02/16/24 In Process 5/325mg Tab ([place] 00:45 Ondansetron Hcl PHA 02/16/24 In Process (Zofran) 00:45 Complete Blood Count LAB 02/17/24 Verified 04:00 Comprehensive LAB 02/17/24 Verified Metabolic Panel 04:00 Npo (Nothing By DIET 02/16/24 Transmitted Mouth) Diet Breakfast Condition: Serious MICHAEL 02/16/24 In Process 00:41 Acetaminophen Tablet PHA 02/16/24 In Process (Tylenol Tablet) 00:45 Bedrest With Bathroom MICHAEL 02/16/24 In Process Privileg 00:41 Morphine Sulfate PHA 02/16/24 In Process Injection 00:45 Sequential [facility] 02/16/24 In Process Compression Device Admit ADMIT 02/16/24 Verified 05:55 Nitroglycerin [facility] 02/16/24 Verified Sublingual (Ntrostat 06:00 Morphine Sulfate PHA 02/16/24 Verified Injection 06:00 Notify Of Changes [facility] 02/16/24 Verified From Base 05:55 Credit Administration Officer For [facility] 02/16/24 Verified 24 Hours 05:55 Emergency Dysrhythmia [facility] 02/16/24 Verified Protocol 05:55 Rhythm Strips Once [facility] 02/16/24 Verified Every Shift 05:55 Oxygen By Nasal RT 02/16/24 Verified Cannula 05:55 Problem List: (1) Small bowel obstruction (2) Abdominal pain (3) Leukocytosis, unspecified (4) Generalized abdominal pain Date of Service: Feb 16, 2024 Billing Provider: OLYA LUJAN DNP Common Visit Codes: [id number]-[id number] INP/OBS CARE (HIGH) OLYA LUJAN DNP Feb 16, 2024 05:56
[2024-02-16] MEDS ORDERED: NITROGLYCERIN 0.4 MG SL TAB SL PRN (06:00)
[2024-02-16] MEDS ORDERED: MORPHINE SULFATE INJ 2 MG/ml SYRG IV PRN ×2 (06:00→11:30)
[2024-02-16] MEDS: metroNIDAZOLE 500MG/100ML 100 ML IV SCH (06:05)
--- NOTE | 2024-02-16 12:04 | DVHPN2 ---
Progress Note Date Seen: Feb 16, 2024 Medical Necessity Reason Pt with a Central, PICC or Fol: No Subjective Review of Systems Pt feels well. No complaints. tolerated CLD Objective vital signs Vital Sign Date Time Temp Pulse Resp B/P (MAP) Pulse Ox O2 Delivery O2 Flow Rate FiO2 02/16/24 11:31 74 12 145/76 (99) 94 02/16/24 07:20 Room Air* 0 21 02/15/24 20:29 97.6 Total Intake and Output 02/15/24 02/15/24 02/16/24 15:00 23:00 07:00 Intake Total 1000 ml 450 ml Balance 1000 ml 450 ml medications Current Medications Medications Dose Ordered Sig/Charles Route Start Time Stop Time Status Last Admin Dose Admin Hydralazine HCl 10 mg Q6HP PRN IV 02/16/24 00:45 Ondansetron HCl 4 mg Q4HP PRN IV 02/16/24 00:45 Morphine Sulfate 2 mg Q4HPRN PRN IV 02/16/24 00:45 Nitroglycerin 0.4 mg Q5MINP PRN SL 02/16/24 06:00 Morphine Sulfate 2 mg Q30M PRN IV 02/16/24 06:00 Sodium Chloride 1,000 ml @ 100 mls/hr Q10H IV 02/16/24 11:15 UNV Enoxaparin Sodium 40 mg DAILY SC 02/17/24 10:00 UNV Morphine Sulfate 2 mg Q2HPRN PRN IV 02/16/24 11:30 UNV Pantoprazole Sodium 40 mg DAILY IV 02/17/24 10:00 UNV Examination AFVSS. Abdomen soft, obese ND and NT laboratory and microbiology Laboratory Tests 02/15/24 20:34 Test 02/15/24 20:34 Range/Units Serum Glucose 99 74-106 mg/dL Problem List/Assessment/Plan Problems(with codes): (1) Pancreatic pseudocyst Problem List/Assessment/Plan Advance diet. If tolerates, may discharge home. Pt will have elevated exocrine hormonone levels secondary to pancreatic pesudocyst Follow up with PCP and obtain referral to [address] [place] [address] enter GI for pancreatic pseudocyst endoscopic drainage. Have to wait 6 weeks for pseudocyst drainage. Plan discussed with: Patient My Orders My Orders Orders - MARIBEL MARIE MD Procedure Category Date Status Time Sodium Chloride 0.9% PHA 02/16/24 Logged 11:15 Ng To Lis MICHAEL 02/16/24 In Process 11:12 Enoxaparin Sodium PHA 02/17/24 Logged (Lovenox) 10:00 Morphine Sulfate PHA 02/16/24 Logged Injection 11:30 Pantoprazole PHA 02/17/24 Logged (Protonix) 10:00 MARIBEL MARIE MD Feb 16, 2024 12:04
[2024-02-16] MEDS: MORPHINE SULFATE INJ 2 MG/ml SYRG IV PRN (13:47)
--- NOTE | 2024-02-16 16:39 | DVHDS2 ---
Discharge Summary Date of Admission Feb 16, 2024 at 05:55 Date of Discharge: Feb 16, 2024 Admitting Diagnosis Small bowel obstruction Labs/Diagnostic Data: Laboratory Results Test 02/15/24 20:34 White Blood Count 15.9 10^3/uL (4.4-10.8) Red Blood Count 7.79 10^6/uL (4.5-5.90) Hemoglobin 18.1 g/dL (13.5-17.5) Hematocrit 58.2 % (41.0-53.0) Mean Corpuscular Volume 74.7 fL (80.0-100.0) Mean Corpuscular Hemoglobin 23.2 pg (28.0-32.0) Mean Corpuscular Hemoglobin Concent 31.1 g/dL (32.0-36.0) Red Cell Distribution Width 19.7 % (11.8-14.3) Platelet Count 291 10^3/uL (140-450) Mean Platelet Volume 8.2 fL (6.9-10.8) Neutrophils (%) (Auto) 85.7 % (37.0-80.0) Lymphocytes (%) (Auto) 7.0 % (10.0-50.0) Monocytes (%) (Auto) 4.8 % (0.0-12.0) Eosinophils (%) (Auto) 2.2 % (0.0-7.0) Basophils (%) (Auto) 0.3 % (0.0-2.0) Neutrophils # (Auto) 13.6 10 ^3/uL (1.6-8.6) Lymphocytes # (Auto) 1.1 10 ^3/uL (0.4-5.4) Monocytes # (Auto) 0.8 10 ^3/uL (0-1.3) Eosinophils # (Auto) 0.4 10 ^3/uL (0-0.8) Basophils # (Auto) 0 10 ^3/uL (0-0.2) Nucleated Red Blood Cells 0.1 % Sodium Level 139 mmol/L (136-145) Potassium Level 4.8 mmol/L (3.5-5.1) Chloride Level 106 mmol/L (98-107) Carbon Dioxide Level 26 mmol/L (20-31) Anion Gap 7 (5-15) Blood Urea Nitrogen 9 mg/dL (9-23) Creatinine 1.20 mg/dL (0.700-1.30) Glomerular Filtration Rate Calc 73 mL/min (>90) BUN/Creatinine Ratio 7.5 (10.0-20.0) Serum Glucose 99 mg/dL (74-106) Calcium Level 10.0 mg/dL (8.7-10.4) Total Bilirubin 1.3 mg/dL (0.2-1.0) Aspartate Amino Transferase (AST) 29 U/L (13-40) Alanine Aminotransferase (ALT) 49 U/L (7-40) Alkaline Phosphatase 63 U/L (46-116) Total Protein 8.0 g/dL (5.7-8.2) Albumin 5.2 g/dL (3.2-4.8) Lipase 33 U/L (12-53) Other Laboratory Tests 02/15/24 20:34 Brief Hx & Hospital Course: 53-year-old male recently admitted for same, found to have some pancreatic pseudocyst with recurrent small-bowel obstruction. Seen by surgery today, who suggest transferred to [place] for higher level of care. Patient was given NG tube for decompression, have not pass gas. Per surgery patient with high- grade obstruction and would need transfer Condition at Discharge: Higher Level of Care Final Diagnosis/Problems List Pancreatic pseudocyst causing small bowel obstruction Secondary Diagnosis: Polycythemia vera Microcytosis Leukocytosis Transaminitis Discharge Disposition: Acute Care Facility SNF Discharge Reason For Transfer: Higher level of care 40 Discharge Statement: "Patient was advised to return to the ER or call 911 if any headaches, dizziness, shortness of breath, chest pain, abdominal pain, bleeding, fevers, or worsening of medical condition. Patient was counseled about treatment plan, medications, possible side effects, patientverbalized understanding. All questions were answered to the best of my ability. This discharge took greater then 30 minutes in planning, reviewing documentation, counseling the patient, and discussing with other team members." ASSESSMENT ASSESSMENT Assessment Pancreatic pseudocyst Grade small bowel obstruction Polycythemia vera likely from chronic hypoxia, other recent can not be ruled out Microcytosis Leukocytosis Transaminitis Surgery consult appreciated Patient to be transferred for higher level of care Continue with NG tube for decompression Zofran p.r.n. nausea Bowel regimen Can do small volume fluid challenge to evaluate social worker health services consult for higher level of care transfer Date of Service: Feb 16, 2024 Billing Provider: JASON TARANGO MD Common Visit Codes: 68029-GKR/OBS DISCH DAY >30min JASON TARANGO MD Feb 16, 2024 16:39
[2024-02-16] MEDS ORDERED: cefTRIAXone 1GM/50ML D5W 50 ML IV SCH (21:00)
--- NOTE | 2024-02-16 23:46 | DVHINCON2 ---
DATE OF CONSULTATION: 02/16/2024 REQUESTING PROVIDER: Edyta Pizarro DNP REASON FOR CONSULTATION: Small-bowel obstruction. HISTORY OF PRESENT ILLNESS: The patient is a 53-year-old male with a history of a desmoid tumor who came to the Emergency Department complaining of abdominal pain with associated abdominal distention/bloating, nausea and vomiting since yesterday. The patient stated that he has been persistently vomiting. He describes the emesis as food as well as black/dark material. Last week, he vomited blood. He is already established with Dr. Urena, surgical oncologist at [facility]. He had been following up and arrangements were being made for surgical intervention. In fact, he has been trying to get a hold of the office to make an appointment for followup to discuss his most recent MRI. His last bowel movement was yesterday. He last passed flatus yesterday as well. Currently, feels better. Denies fevers, chills, hemoptysis, hematemesis, bilious emesis, chest pain, shortness of breath, unintentional weight loss, night sweats, melena or hematochezia. Previously, he did have some dyspnea, but that has resolved. PAST MEDICAL HISTORY: Significant for obesity, desmoid tumor and hypertension. PAST SURGICAL HISTORY: Cataract surgery and bilateral inguinal hernia repair. MEDICATIONS: Amlodipine. ALLERGIES: No known drug allergies. SOCIAL HISTORY: Denies smoking cigarettes, alcohol or drug use, marijuana use or vaping. FAMILY HISTORY: Noncontributory. REVIEW OF SYSTEMS: NEUROLOGIC: Negative. PSYCHIATRIC: Negative. ENDOCRINE: Negative. ENT: Negative. CARDIOVASCULAR: Negative. PULMONARY: Negative. GASTROINTESTINAL: As above. GENITOURINARY: Negative. HEMATOLOGY/INFECTIOUS DISEASE: Negative. LYMPHATICS: Negative. MUSCULOSKELETAL: Negative. SKIN: Negative. PHYSICAL EXAMINATION: GENERAL: He is lying comfortably in a stretcher in ED1. He is calm, pleasant and in no distress. VITAL SIGNS: He is afebrile with stable vital signs with exception of hypertension. Normal heart rate with hypertension. NEUROLOGIC: Grossly intact, alert, awake, oriented x 3. HEENT: Normocephalic. Pupils equally round. Extraocular muscles intact. Trachea is midline. HEART: Normal heart rate. Hypertensive. LUNGS: Effortless breathing. Normal respiratory rate. Low oxygen saturation. ABDOMEN: Soft, mildly distended, nontender, with an incarcerated umbilical hernia. No palpable masses, hernias or visceromegaly. However, his body habitus significantly hinders examination. EXTREMITIES: No edema or tenderness. LABORATORY DATA: Review of his labs demonstrates white blood cell count 16, hemoglobin 18, hematocrit 58, platelets 291. Chemistry essentially remarkable for mildly elevated ALP and total bilirubin. CT scan of the abdomen and pelvis was reviewed, with corresponding report. There is evidence of a high-grade small-bowel obstruction with a mesenteric lesion and associated calcifications. There is also evidence of an umbilical hernia. Bilateral inguinal hernia repair. ASSESSMENT: A 53-year-old male with a high-grade small-bowel obstruction secondary to desmoid tumor. The patient is an established patient with Dr. Guidry from [facility]. 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 Leukocytosis, likely secondary to hemoconcentration. The patient has elevated hemoglobin and hematocrit. No source of infection. PLANS AND RECOMMENDATION: Recommend strict n.p.o., IV fluids, DVT and GI prophylaxis. No need for antibiotic therapy. Transfer the patient to [facility] under the care of Dr. Urena for surgical intervention. Thank you for allowing me to participate in the care of your patient. I will follow him with you. MD TOMAS Duong/SEGUN/PHANI TID: [id number] RECEIPT: [id number] MTDEl
[2024-02-17] VITALS (8 sets, daily range): BP systolic 123–150; BP diastolic 75–80; PULSE 56–74; RESP 17–21; TEMP 97.7–98.5; O2SAT 94–97
[2024-02-17 05:50] LABS: Basophils # (auto) 0.1 10 ^3/uL (0-0.2); Basophils % (auto) 0.8 % (0.0-2.0); Eosinophils # (auto) 0.6 10 ^3/uL (0-0.8); Eosinophils % (auto) 7.8 % (0.0-7.0); Hematocrit 50.8 % (41.0-53.0); Hemoglobin 16.2 g/dL (13.5-17.5); Lymphocytes # (auto) 1.4 10 ^3/uL (0.4-5.4); Lymphocytes % (auto) 17.2 % (10.0-50.0); Mean Corpuscular Hemoglobin 23.6 pg (28.0-32.0); Mean Corpuscular Hgb Conc. 31.9 g/dL (32.0-36.0); Monocytes # (auto) 0.7 10 ^3/uL (0-1.3); Monocytes % (auto) 8.6 % (0.0-12.0); Neutrophils # (auto) 5.3 10 ^3/uL (1.6-8.6); Neutrophils % (auto) 65.6 % (37.0-80.0); Nucleated Red Blood Cells % 0.1 %; Platelet Count (auto) 269 10^3/uL (140-450); Red Blood Cells 6.87 10^6/uL (4.5-5.90); Red Cell Distribution Width 19.3 % (11.8-14.3); White Blood Cell 8.1 10^3/uL (4.4-10.8)
[2024-02-17 05:53] LABS: Alanine Aminotransferase 31 U/L (7-40); Albumin 4.2 g/dL (3.2-4.8); Alkaline Phosphatase 51 U/L (46-116); Anion Gap 6 (5-15); Aspartate Aminotransferase 18 U/L (13-40); BUN/Creatinine Ratio 8.7 (10.0-20.0); Blood Urea Nitrogen 10 mg/dL (9-23); Calcium 9.1 mg/dL (8.7-10.4); Carbon Dioxide 28 mmol/L (20-31); Chloride 108 mmol/L (98-107); Glucose 83 mg/dL (74-106); Potassium 3.9 mmol/L (3.5-5.1); Sodium 142 mmol/L (136-145)
[2024-02-17 05:54] LABS: Bilirubin, Total 1.5 mg/dL (0.2-1.0); Total Protein 6.6 g/dL (5.7-8.2)
[2024-02-17] MEDS: PANTOPRAZOLE 40 MG/10 ML VIAL INJ IV SCH (09:20)
[2024-02-17] MEDS: ENOXAPARIN SOD 40 MG/0.4 ML SYRINGE SC SCH (09:20)
--- NOTE | 2024-02-17 18:38 | DVHPN2 ---
Progress Note Date Seen: Feb 17, 2024 Medical Necessity Reason Pt with a Central, PICC or Fol: No Subjective Review of Systems Pt was sitting comfortably in a chair with NGT clamped. Denies N/V. He states he has been receiving trays of liquids in spite of having orders to remain strict NPO and NGT to LCS. He admits to passign flatus and still has episodes of crampy abdominal pain. Remains bloated. Denied N/V Objective vital signs Vital Sign Date Time Temp Pulse Resp B/P (MAP) Pulse Ox O2 Delivery O2 Flow Rate FiO2 02/17/24 17:00 98.5 72 21 144/80 (101) 96 98.5 02/17/24 08:05 Nasal Cannula* 1 24 Total Intake and Output 02/16/24 02/16/24 02/17/24 15:00 23:00 07:00 Intake Total 340 ml 120 ml Output Total 275 ml 400 ml Balance 340 ml -155 ml -400 ml medications Current Medications Medications Dose Ordered Sig/Charles Route Start Time Stop Time Status Last Admin Dose Admin Hydralazine HCl 10 mg Q6HP PRN IV 02/16/24 00:45 Ondansetron HCl 4 mg Q4HP PRN IV 02/16/24 00:45 Morphine Sulfate 2 mg Q4HPRN PRN IV 02/16/24 00:45 02/16/24 22:12 2 MG Nitroglycerin 0.4 mg Q5MINP PRN SL 02/16/24 06:00 Morphine Sulfate 2 mg Q30M PRN IV 02/16/24 06:00 Sodium Chloride 1,000 ml @ 100 mls/hr Q10H IV 02/16/24 11:15 02/17/24 10:15 100 MLS/HR Enoxaparin Sodium 40 mg DAILY SC 02/17/24 10:00 02/17/24 09:20 40 MG Morphine Sulfate 2 mg Q2HPRN PRN IV 02/16/24 11:30 Pantoprazole Sodium 40 mg DAILY IV 02/17/24 10:00 02/17/24 09:20 40 MG Examination AFVSS. Abdomen soft, distended and NT laboratory and microbiology Laboratory Tests 02/17/24 05:16 Test 02/17/24 05:16 Range/Units Serum Glucose 83 74-106 mg/dL Problem List/Assessment/Plan Problems(with codes): (1) Small bowel obstruction Problem List/Assessment/Plan Advance diet. If tolerates, may discharge home. Pt will have elevated exocrine hormonone levels secondary to pancreatic pesudocyst Follow up with PCP and obtain referral to [address] [place] [address] enter GI for pancreatic pseudocyst endoscopic drainage. Have to wait 6 weeks for pseudocyst drainage. Plan discussed with: Patient My Orders My Orders Pt being transferred to [facility] under the care of Dr. Urena for HGSBO secondary to dermoid tumor. Continue strict NPO. IBF, NGT to LCS, DVT and GI prophylaxis. MARIBEL MARIE MD Feb 17, 2024 18:38
--- NOTE | 2024-02-17 19:52 | DVHPN2 ---
Subjective 53-year-old male with high-grade SBO, pending transferred to [facility], for surgical Oncology Patient pass flatus today, small trial of jello and water, no vomiting. Still no bowel movement. Pending transfer For more detail look at discharge summary 02/16/2024 Changes from previous H/P or p: No Changes Eyes: No Pain, No Vision change, No Conjunctivae inflammation, No Eyelid inflammation, No Other, No Redness ENT: No Ear pain, No Ear discharge, No Nose pain, No Nose discharge, No Nose congestion, No Mouth pain, No Mouth swelling, No Throat pain, No Throat swelling, No Other Cardiovascular: No Chest Pain, No Palpitations, No Orthopnea, No Paroxysmal Noc. Dyspnea, No Edema, No Lt Headedness, No Other Respiratory: No Cough, No Dry, No Shortness of breath, No SOB with excertion, No Wheezing, No Hemoptysis, No Pleuritic Pain, No Sputum, No Other Gastrointestinal: Nausea, Vomiting, Abdominal Pain; No Diarrhea, No Constipation, No Melena, No Hematochezia, No Other Genitourinary: No Dysuria, No Frequency, No Incontinence, No Hematuria, No Retention, No Other Musculoskeletal: No other, No neck pain, No shoulder pain, No arm pain, No back pain, No hand pain, No leg pain, No foot pain Skin: No Rash, No Lesions, No Jaundice, No Bruising, No Other Objective Vitals Vital Signs Date Time Temp Pulse Resp B/P (MAP) Pulse Ox O2 Delivery O2 Flow Rate FiO2 02/17/24 17:00 98.5 72 21 144/80 (101) 96 98.5 02/17/24 08:05 Nasal Cannula* 1 24 Intake/Output Intake and Output 02/17/24 04:00 Intake Total 640 ml Output Total 275 ml Balance 365 ml Intake Oral 120 ml IV Total 520 ml Output Urine Total 275 ml # Voids 2 Medications Current Medications Medications Dose Ordered Sig/Charles Route Start Time Stop Time Status Last Admin Dose Admin Hydralazine HCl 10 mg Q6HP PRN IV 02/16/24 00:45 Ondansetron HCl 4 mg Q4HP PRN IV 02/16/24 00:45 Morphine Sulfate 2 mg Q4HPRN PRN IV 02/16/24 00:45 02/16/24 22:12 2 MG Nitroglycerin 0.4 mg Q5MINP PRN SL 02/16/24 06:00 Morphine Sulfate 2 mg Q30M PRN IV 02/16/24 06:00 Sodium Chloride 1,000 ml @ 100 mls/hr Q10H IV 02/16/24 11:15 02/17/24 10:15 100 MLS/HR Enoxaparin Sodium 40 mg DAILY SC 02/17/24 10:00 02/17/24 09:20 40 MG Morphine Sulfate 2 mg Q2HPRN PRN IV 02/16/24 11:30 Pantoprazole Sodium 40 mg DAILY IV 02/17/24 10:00 02/17/24 09:20 40 MG Laboratory Results Laboratory Tests 02/17/24 05:16 Chemistry Test 02/17/24 05:16 Albumin 4.2 g/dL (3.2-4.8) Calcium Level 9.1 mg/dL (8.7-10.4) Total Protein 6.6 g/dL (5.7-8.2) LFT Test 02/17/24 05:16 Alanine Aminotransferase (ALT) 31 U/L (7-40) Alkaline Phosphatase 51 U/L (46-116) Aspartate Amino Transferase (AST) 18 U/L (13-40) Total Bilirubin 1.5 mg/dL (0.2-1.0) H Assessment/Plan Assessment/Plan Desmoid tumor High-grade SBO Transferred to [facility] for surgicalz Oncology Acceptinga physician Dr. Guidry Pending bed Oral intake challenge Bowel regimen Pain management Keep NG tube for now Plan discussed with: Patient My Orders Orders - JASON TARANGO MD Procedure Category Date Status Time * Second Butler CONS 02/17/24 Transmitted Consult Discharge DISCHARGE 02/17/24 Transmitted 13:55 Date of Service: Feb 17, 2024 Billing Provider: JASON TARANGO MD Common Visit Codes: [id number] INP/OBS CARE(HIGH) JASON TARANGO MD Feb 17, 2024 19:52
[2024-02-18] VITALS (7 sets, daily range): BP systolic 135–149; BP diastolic 71–86; PULSE 61–78; RESP 17–18; TEMP 97.9–98.6; O2SAT 93–98
--- NOTE | 2024-02-18 15:43 | DVHPN2 ---
Subjective 53-year-old male with high-grade SBO, pending transferred to [facility], for surgical Oncology Patient pass flatus today, small trial of jello and water, no vomiting. Still no bowel movement. Pending transfer. Patient to be kept NPO, we will start D5 half NS For more detail look at discharge summary 02/16/2024 Reviewed: Care Plan, H&P, Labs, Medications, Previous Orders, Radiology Changes from previous H/P or p: No Changes Eyes: No Pain, No Vision change, No Conjunctivae inflammation, No Eyelid inflammation, No Other, No Redness ENT: No Ear pain, No Ear discharge, No Nose pain, No Nose discharge, No Nose congestion, No Mouth pain, No Mouth swelling, No Throat pain, No Throat swelling, No Other Cardiovascular: No Chest Pain, No Palpitations, No Orthopnea, No Paroxysmal Noc. Dyspnea, No Edema, No Lt Headedness, No Other Respiratory: No Cough, No Dry, No Shortness of breath, No SOB with excertion, No Wheezing, No Hemoptysis, No Pleuritic Pain, No Sputum, No Other Gastrointestinal: Nausea, Vomiting, Abdominal Pain; No Diarrhea, No Constipation, No Melena, No Hematochezia, No Other Genitourinary: No Dysuria, No Frequency, No Incontinence, No Hematuria, No Retention, No Other Musculoskeletal: No other, No neck pain, No shoulder pain, No arm pain, No back pain, No hand pain, No leg pain, No foot pain Skin: No Rash, No Lesions, No Jaundice, No Bruising, No Other Objective Vitals Vital Signs Date Time Temp Pulse Resp B/P (MAP) Pulse Ox O2 Delivery O2 Flow Rate FiO2 02/18/24 13:09 98.5 73 18 142/79 (100) 95 98.5 02/18/24 08:00 Nasal Cannula* 1 24 Intake/Output Intake and Output 02/18/24 07:00 Intake Total 1000 ml Output Total 1870 ml Balance -870 ml IV Total 1000 ml Output Urine Total 970 ml Gastric Drainage Total 900 ml Exam Alert, oriented x3 PERRLA NG tube in place, to suction No JVD Clear breath sounds bilaterally S1-S2 regular rate and rhythm no murmur Abdomen distended, soft, nontender, bowel sounds normal Equal strength bilaterally on upper and lower extremities No lower extremity edema Medications Current Medications Medications Dose Ordered Sig/Charles Route Start Time Stop Time Status Last Admin Dose Admin Hydralazine HCl 10 mg Q6HP PRN IV 02/16/24 00:45 Ondansetron HCl 4 mg Q4HP PRN IV 02/16/24 00:45 Morphine Sulfate 2 mg Q4HPRN PRN IV 02/16/24 00:45 02/16/24 22:12 2 MG Nitroglycerin 0.4 mg Q5MINP PRN SL 02/16/24 06:00 Morphine Sulfate 2 mg Q30M PRN IV 02/16/24 06:00 Sodium Chloride 1,000 ml @ 100 mls/hr Q10H IV 02/16/24 11:15 02/18/24 13:15 100 MLS/HR Enoxaparin Sodium 40 mg DAILY SC 02/17/24 10:00 02/18/24 09:02 40 MG Morphine Sulfate 2 mg Q2HPRN PRN IV 02/16/24 11:30 Pantoprazole Sodium 40 mg DAILY IV 02/17/24 10:00 02/18/24 09:02 40 MG Laboratory Results Laboratory Tests 02/17/24 05:16 Labs and/or images reviewed: Labs reviewed by me, Image(s) reviewed by me Assessment/Plan Assessment/Plan Desmoid tumor High-grade SBO Transferred to [facility] for surgicalz Oncology Accepting physician Dr. Guidry Pending bed Keep NG tube to low intermittent suction Strict NPO Start D5 water half NS Surgical consult appreciated Plan discussed with: Patient Date of Service: Feb 18, 2024 Billing Provider: JASON TARANGO MD Common Visit Codes: [id number] INP/OBS CARE(HIGH) JASON TARANGO MD Feb 18, 2024 15:43
[2024-02-18] MEDS: D5W 5% 1,000 ML IV SCH (15:45)
--- NOTE | 2024-02-18 17:02 | DVHPN2 ---
Progress Note Date Seen: Feb 18, 2024 Medical Necessity Reason Pt with a Central, PICC or Fol: No Subjective Review of Systems Occasional episodes of pain. Denies N/V. Continues passing flatus. Denies BM Objective vital signs Vital Sign Date Time Temp Pulse Resp B/P (MAP) Pulse Ox O2 Delivery O2 Flow Rate FiO2 02/18/24 13:09 98.5 73 18 142/79 (100) 95 98.5 02/18/24 08:00 Nasal Cannula* 1 24 Total Intake and Output 02/17/24 02/17/24 02/18/24 15:00 23:00 07:00 Intake Total 1000 ml Output Total 900 ml 970 ml Balance 1000 ml -900 ml -970 ml medications Current Medications Medications Dose Ordered Sig/Charles Route Start Time Stop Time Status Last Admin Dose Admin Hydralazine HCl 10 mg Q6HP PRN IV 02/16/24 00:45 Ondansetron HCl 4 mg Q4HP PRN IV 02/16/24 00:45 Morphine Sulfate 2 mg Q4HPRN PRN IV 02/16/24 00:45 02/16/24 22:12 2 MG Nitroglycerin 0.4 mg Q5MINP PRN SL 02/16/24 06:00 Morphine Sulfate 2 mg Q30M PRN IV 02/16/24 06:00 Sodium Chloride 1,000 ml @ 100 mls/hr Q10H IV 02/16/24 11:15 02/18/24 13:15 100 MLS/HR Enoxaparin Sodium 40 mg DAILY SC 02/17/24 10:00 02/18/24 09:02 40 MG Morphine Sulfate 2 mg Q2HPRN PRN IV 02/16/24 11:30 Pantoprazole Sodium 40 mg DAILY IV 02/17/24 10:00 02/18/24 09:02 40 MG Dextrose 1,000 ml @ 75 mls/hr [id number] IV 02/18/24 15:45 Examination AFVSS. Abdomen soft, ND and NT. NGT with bilious fluid laboratory and microbiology Laboratory Tests 02/17/24 05:16 Test 02/17/24 05:16 Range/Units Serum Glucose 83 74-106 mg/dL Problem List/Assessment/Plan Problem List/Assessment/Plan NPO, IVF, NGT decompression, DVT and GI prophylaxis. Awaiting Txf ro [facility] under the care of Dr. Urena. Plan discussed with: Patient MARIBEL MARIE MD Feb 18, 2024 17:02
[2024-02-19] VITALS (8 sets, daily range): BP systolic 143–159; BP diastolic 73–84; PULSE 59–100; RESP 18–20; TEMP 97.6–98.3; O2SAT 93–100
[2024-02-19] MEDS: ONDANSETRON HCL 4 MG/2 ML VIAL IV PRN (05:09)
[2024-02-19 06:23] LABS: Basophils # (auto) 0.1 10 ^3/uL (0-0.2); Hemoglobin 16.6 g/dL (13.5-17.5); Neutrophils # (auto) 3.8 10 ^3/uL (1.6-8.6)
[2024-02-19 06:25] LABS: Eosinophils # (auto) 0.6 10 ^3/uL (0-0.8); Hematocrit 51.7 % (41.0-53.0); Lymphocytes # (auto) 1.3 10 ^3/uL (0.4-5.4); Lymphocytes % (auto) 20.8 % (10.0-50.0); Mean Corpuscular Hemoglobin 23.6 pg (28.0-32.0); Mean Corpuscular Volume 73.7 fL (80.0-100.0); Monocytes # (auto) 0.5 10 ^3/uL (0-1.3); Monocytes % (auto) 8.5 % (0.0-12.0); Neutrophils % (auto) 60.7 % (37.0-80.0); Nucleated Red Blood Cells % 0.2 %; Platelet Count (auto) 276 10^3/uL (140-450); Red Blood Cells 7.01 10^6/uL (4.5-5.90); Red Cell Distribution Width 18.9 % (11.8-14.3); White Blood Cell 6.2 10^3/uL (4.4-10.8)
[2024-02-19 06:30] LABS: Chloride 106 mmol/L (98-107); Potassium 4.4 mmol/L (3.5-5.1); Sodium 139 mmol/L (136-145)
[2024-02-19 06:31] LABS: Anion Gap 9 (5-15); Carbon Dioxide 24 mmol/L (20-31)
[2024-02-19 06:32] LABS: Calcium 9.1 mg/dL (8.7-10.4)
[2024-02-19 06:36] LABS: Glucose 73 mg/dL (74-106)
[2024-02-19 06:37] LABS: BUN/Creatinine Ratio 9.1 (10.0-20.0); Blood Urea Nitrogen 9 mg/dL (9-23)
[2024-02-19] MEDS ORDERED: TPN PER PHARMACY 0 ML IV SCH (10:30)
--- NOTE | 2024-02-19 10:32 | DVHPN2 ---
Progress Note Date Seen: Feb 19, 2024 Medical Necessity Reason Pt with a Central, PICC or Fol: No Subjective Review of Systems Pt seen earlier. He admitted to nausea. enies abdominal pain, vomiting, passing flatus or BM. C/O persistent HTN Objective vital signs Vital Sign Date Time Temp Pulse Resp B/P (MAP) Pulse Ox O2 Delivery O2 Flow Rate FiO2 02/19/24 09:00 97.6 59 20 155/73 (100) 95 97.6 02/18/24 20:00 Nasal Cannula* 1 24 Total Intake and Output 02/18/24 02/18/24 02/19/24 15:00 23:00 07:00 Intake Total 1200 ml 100 ml Output Total 1300 ml 750 ml Balance -100 ml -650 ml medications Current Medications Medications Dose Ordered Sig/Charles Route Start Time Stop Time Status Last Admin Dose Admin Hydralazine HCl 10 mg Q6HP PRN IV 02/16/24 00:45 Ondansetron HCl 4 mg Q4HP PRN IV 02/16/24 00:45 02/19/24 05:09 4 MG Morphine Sulfate 2 mg Q4HPRN PRN IV 02/16/24 00:45 02/19/24 05:20 2 MG Nitroglycerin 0.4 mg Q5MINP PRN SL 02/16/24 06:00 Morphine Sulfate 2 mg Q30M PRN IV 02/16/24 06:00 Sodium Chloride 1,000 ml @ 100 mls/hr Q10H IV 02/16/24 11:15 02/19/24 05:12 100 MLS/HR Enoxaparin Sodium 40 mg DAILY SC 02/17/24 10:00 02/18/24 09:02 40 MG Morphine Sulfate 2 mg Q2HPRN PRN IV 02/16/24 11:30 Pantoprazole Sodium 40 mg DAILY IV 02/17/24 10:00 02/18/24 09:02 40 MG Dextrose 1,000 ml @ 75 mls/hr [id number] IV 02/18/24 15:45 02/18/24 15:45 75 MLS/HR Examination AFVSS. Abdomen soft, obese, ND and NT. NGT with minimal bilious fluid output laboratory and microbiology Laboratory Tests 02/19/24 05:00 Test 02/19/24 05:00 Range/Units Serum Glucose 73 L 74-106 mg/dL Labs and/or images reviewed: Labs reviewed by me Problem List/Assessment/Plan Problems(with codes): (1) Small bowel obstruction Problem List/Assessment/Plan NPO, IVF, NGT decompression, DVT and GI prophylaxis. TPN. Awaiting Txf ro [facility] under the care of Dr. Urena. Lopressor 2.5 mg IV q 6 for HTN Plan discussed with: Patient MARIBEL MARIE MD Feb 19, 2024 10:32
[2024-02-19] MEDS ORDERED: DEXTROSE (50%) 50ML SYRG IV SCH (11:00)
[2024-02-19] MEDS: ACCU-CHEK COMFORT CURVE STRIP VI SCH (12:00)
[2024-02-19] MEDS: InsuLIN REG 1unit/0.01ml Soln (100units/ml) SC SCH (12:00)
[2024-02-19] MEDS: METOPROLOL TARTRATE 1MG/1ML-5ML VIAL IV SCH (13:07)
--- NOTE | 2024-02-19 15:08 | DVHPN2 ---
Subjective 53-year-old male with high-grade SBO, pending transferred to [facility], for surgical Oncology Patient pass flatus, strict n p.o. Still no bowel movement. Pending transfer. We will obtain PICC line and start TPN For more detail look at discharge summary 02/16/2024 Reviewed: Care Plan, H&P, Labs, Medications, Previous Orders, Radiology Changes from previous H/P or p: No Changes Eyes: No Pain, No Vision change, No Conjunctivae inflammation, No Eyelid inflammation, No Other, No Redness ENT: No Ear pain, No Ear discharge, No Nose pain, No Nose discharge, No Nose congestion, No Mouth pain, No Mouth swelling, No Throat pain, No Throat swelling, No Other Cardiovascular: No Chest Pain, No Palpitations, No Orthopnea, No Paroxysmal Noc. Dyspnea, No Edema, No Lt Headedness, No Other Respiratory: No Cough, No Dry, No Shortness of breath, No SOB with excertion, No Wheezing, No Hemoptysis, No Pleuritic Pain, No Sputum, No Other Gastrointestinal: Nausea, Vomiting, Abdominal Pain; No Diarrhea, No Constipation, No Melena, No Hematochezia, No Other Genitourinary: No Dysuria, No Frequency, No Incontinence, No Hematuria, No Retention, No Other Musculoskeletal: No other, No neck pain, No shoulder pain, No arm pain, No back pain, No hand pain, No leg pain, No foot pain Skin: No Rash, No Lesions, No Jaundice, No Bruising, No Other Objective Vitals Vital Signs Date Time Temp Pulse Resp B/P (MAP) Pulse Ox O2 Delivery O2 Flow Rate FiO2 02/19/24 14:02 65 143/82 02/19/24 13:00 98.1 18 100 98.1 02/18/24 20:00 Nasal Cannula* 1 24 Intake/Output Intake and Output 02/19/24 07:00 Intake Total 1300 ml Output Total 2050 ml Balance -750 ml Intake Oral 100 ml IV Total 1200 ml Output Urine Total 2050 ml Exam Alert, oriented x3 PERRLA NG tube in place, to suction No JVD Clear breath sounds bilaterally S1-S2 regular rate and rhythm no murmur Abdomen distended, soft, nontender, bowel sounds normal Equal strength bilaterally on upper and lower extremities No lower extremity edema Medications Current Medications Medications Dose Ordered Sig/Charles Route Start Time Stop Time Status Last Admin Dose Admin Ondansetron HCl 4 mg Q4HP PRN IV 02/16/24 00:45 02/19/24 05:09 4 MG Morphine Sulfate 2 mg Q4HPRN PRN IV 02/16/24 00:45 02/19/24 10:34 2 MG Nitroglycerin 0.4 mg Q5MINP PRN SL 02/16/24 06:00 Morphine Sulfate 2 mg Q30M PRN IV 02/16/24 06:00 Enoxaparin Sodium 40 mg DAILY SC 02/17/24 10:00 02/18/24 09:02 40 MG Morphine Sulfate 2 mg Q2HPRN PRN IV 02/16/24 11:30 Pantoprazole Sodium 40 mg DAILY IV 02/17/24 10:00 02/19/24 10:32 40 MG Dextrose 1,000 ml @ 75 mls/hr [id number] IV 02/18/24 15:45 02/19/24 10:35 75 MLS/HR Amino Acids 0 ml @ 0 mls/hr PER PHARMACY IV 02/19/24 10:30 Diagnostic Test (Pha) 1 strip Q6HR 02/19/24 12:00 Insulin Human Regular FOLLOW SLIDING SCALE Q6HR SC 02/19/24 12:00 Dextrose 50 ml UD IV 02/19/24 11:00 Laboratory Results Laboratory Tests 02/19/24 05:00 Chemistry Test 02/19/24 05:00 Calcium Level 9.1 mg/dL (8.7-10.4) Labs and/or images reviewed: Labs reviewed by me, Image(s) reviewed by me Assessment/Plan Assessment/Plan Desmoid tumor High-grade SBO Transferred to [facility] for surgicalz Oncology Acceptinga physician Dr. Guidry Pending bed Keep NG tube to low intermittent suction Strict NPO Start TPN Consult PICC We will allow slight hypertension Informed hospitalist if blood pressure above 170 SBP Surgical consult appreciated Plan discussed with: Patient My Orders Orders - JASON TARANGO MD Procedure Category Date Status Time D5w 5% (Dextrose 5%) PHA 02/18/24 In Process 15:45 Communication Order ORDERS 02/19/24 Transmitted 14:29 Date of Service: Feb 19, 2024 Billing Provider: JASON TARANGO MD Common Visit Codes: [id number] INP/OBS CARE(HIGH) JASON TARANGO MD Feb 19, 2024 15:08
[2024-02-19] MEDS: AMINO ACID INFUSION IN D10W 1,000 ML IV ONE (20:00)
[2024-02-20] VITALS (8 sets, daily range): BP systolic 130–152; BP diastolic 70–90; PULSE 54–86; RESP 18–20; TEMP 97.6–98.7; O2SAT 93–96
[2024-02-20 06:44] LABS: Alanine Aminotransferase 43 U/L (7-40); Albumin 4.3 g/dL (3.2-4.8); Alkaline Phosphatase 54 U/L (46-116); Anion Gap 9 (5-15); Aspartate Aminotransferase 33 U/L (13-40); Blood Urea Nitrogen 6 mg/dL (9-23); Calcium 9.4 mg/dL (8.7-10.4); Carbon Dioxide 26 mmol/L (20-31); Chloride 104 mmol/L (98-107); Glucose 94 mg/dL (74-106); Potassium 3.6 mmol/L (3.5-5.1); Sodium 139 mmol/L (136-145); Triglycerides 95 mg/dL (< 150)
[2024-02-20 06:45] LABS: Bilirubin, Total 1.9 mg/dL (0.2-1.0); Total Protein 6.9 g/dL (5.7-8.2)
--- NOTE | 2024-02-20 10:02 | DVHPN2 ---
Subjective 53-year-old male with high-grade SBO, pending transferred to [facility], for surgical Oncology Patient pass flatus, strict n p.o. Still no bowel movement. Pending transfer. Discussed with surgeon and patient regarding his stay and plan. Patient will stay until a bed available for his transfer to [facility] for surgical oncology. Patient has been NPO for 4 days, we will start PICC line placement and TPN. Nutrition consult. We will start IV antihypertensive with enalapril at scheduled injection as patient is strict NPO. Risks and benefits discussed with patient and he expressed understanding For more detail look at discharge summary 02/16/2024 Reviewed: Care Plan, H&P, Labs, Medications, Previous Orders, Radiology Changes from previous H/P or p: No Changes Eyes: No Pain, No Vision change, No Conjunctivae inflammation, No Eyelid inflammation, No Other, No Redness ENT: No Ear pain, No Ear discharge, No Nose pain, No Nose discharge, No Nose congestion, No Mouth pain, No Mouth swelling, No Throat pain, No Throat swelling, No Other Cardiovascular: No Chest Pain, No Palpitations, No Orthopnea, No Paroxysmal Noc. Dyspnea, No Edema, No Lt Headedness, No Other Respiratory: No Cough, No Dry, No Shortness of breath, No SOB with excertion, No Wheezing, No Hemoptysis, No Pleuritic Pain, No Sputum, No Other Gastrointestinal: Nausea, Vomiting, Abdominal Pain; No Diarrhea, No Constipation, No Melena, No Hematochezia, No Other Genitourinary: No Dysuria, No Frequency, No Incontinence, No Hematuria, No Retention, No Other Musculoskeletal: No other, No neck pain, No shoulder pain, No arm pain, No back pain, No hand pain, No leg pain, No foot pain Skin: No Rash, No Lesions, No Jaundice, No Bruising, No Other Objective Vitals Vital Signs Date Time Temp Pulse Resp B/P (MAP) Pulse Ox O2 Delivery O2 Flow Rate FiO2 02/20/24 05:00 97.8 58 18 130/70 (90) 96 97.8 02/19/24 20:00 Room Air* 0 21 Intake/Output Intake and Output 02/20/24 06:59 Intake Total 1000 ml Output Total 1350 ml Balance -350 ml Intake Oral 0 ml IV Total 1000 ml Output Urine Total 1350 ml # Voids 1 Exam Alert, oriented x3 PERRLA NG tube in place, to suction No JVD Clear breath sounds bilaterally S1-S2 regular rate and rhythm no murmur Abdomen distended, soft, nontender, bowel sounds normal Equal strength bilaterally on upper and lower extremities No lower extremity edema Medications Current Medications Medications Dose Ordered Sig/Charles Route Start Time Stop Time Status Last Admin Dose Admin Ondansetron HCl 4 mg Q4HP PRN IV 02/16/24 00:45 02/19/24 05:09 4 MG Morphine Sulfate 2 mg Q4HPRN PRN IV 02/16/24 00:45 02/19/24 21:11 2 MG Nitroglycerin 0.4 mg Q5MINP PRN SL 02/16/24 06:00 Morphine Sulfate 2 mg Q30M PRN IV 02/16/24 06:00 Enoxaparin Sodium 40 mg DAILY SC 02/17/24 10:00 02/20/24 09:54 40 MG Morphine Sulfate 2 mg Q2HPRN PRN IV 02/16/24 11:30 Pantoprazole Sodium 40 mg DAILY IV 02/17/24 10:00 02/20/24 09:54 40 MG Dextrose 1,000 ml @ 75 mls/hr [id number] IV 02/18/24 15:45 02/20/24 01:20 75 MLS/HR Amino Acids 0 ml @ 0 mls/hr PER PHARMACY IV 02/19/24 10:30 Diagnostic Test (Pha) 1 strip Q6HR 02/19/24 12:00 Insulin Human Regular FOLLOW SLIDING SCALE Q6HR SC 02/19/24 12:00 Dextrose 50 ml UD IV 02/19/24 11:00 Laboratory Results Laboratory Tests 02/19/24 05:00 02/20/24 05:35 Chemistry Test 02/20/24 05:35 Albumin 4.3 g/dL (3.2-4.8) Calcium Level 9.4 mg/dL (8.7-10.4) Magnesium Level 2.0 mg/dL (1.6-2.6) Phosphorus Level 3.0 mg/dL (2.4-5.1) Total Protein 6.9 g/dL (5.7-8.2) Lipid panel Test 02/20/24 05:35 Triglycerides Level 95 mg/dL (< 150) LFT Test 02/20/24 05:35 Alanine Aminotransferase (ALT) 43 U/L (7-40) H Alkaline Phosphatase 54 U/L (46-116) Aspartate Amino Transferase (AST) 33 U/L (13-40) Total Bilirubin 1.9 mg/dL (0.2-1.0) H Assessment/Plan Assessment/Plan Desmoid tumor High-grade SBO Hypertension Transferred to [facility] for surgicalz Oncology Acceptinga physician Dr. Guidry Pending bed Keep NG tube to low intermittent suction Strict NPO Start TPN Consult PICC Consult nutrition Start enalaprilat at 0.625 q.6 scheduled Informed hospitalist if blood pressure above 170 SBP Surgical consult appreciated Plan discussed with: Patient My Orders Orders - JASON TARANGO MD Procedure Category Date Status Time Communication Order ORDERS 02/19/24 Transmitted 14:29 * Dietary Consult CONS 02/20/24 Transmitted 09:47 Enalaprilat Injection PHA 02/20/24 Transmitted (Vasotec Injection 12:00 Date of Service: Feb 20, 2024 Billing Provider: JASON TARANGO MD Common Visit Codes: [id number] INP/OBS CARE(HIGH) JASON TARANGO MD Feb 20, 2024 10:02
[2024-02-20 12:34] LABS: INR 1.13 (0.9-1.15); Partial Thromboplastin Time 32.2 SEC (24.5-34.5); Prothrombin Time 11.9 sec (9.3-11.8)
[2024-02-20] MEDS: ENALAPRILAT 1.25 MG/ML-1ML VIAL IV SCH (15:37)
[2024-02-20] MEDS ORDERED: LIDOCAINE 1% (LOCAL ANESTH.) PF 5ml SDV ID ONE (17:15)
--- NOTE | 2024-02-20 20:20 | DVHPN2 ---
Progress Note Date Seen: Feb 20, 2024 Medical Necessity Reason Pt with a Central, PICC or Fol: Yes The following are medically ne: PICC Line Subjective Review of Systems Pt still experiencing episodes of nausea. Passing some flatus. Denies BM Objective vital signs Vital Sign Date Time Temp Pulse Resp B/P (MAP) Pulse Ox O2 Delivery O2 Flow Rate FiO2 02/20/24 17:00 97.9 70 18 146/90 (108) 93 97.9 02/20/24 08:00 Room Air* 0 21 Total Intake and Output 02/19/24 02/19/24 02/20/24 15:00 23:00 07:00 Intake Total 0 ml 1000 ml Output Total 1350 ml Balance 0 ml -350 ml medications Current Medications Medications Dose Ordered Sig/Charles Route Start Time Stop Time Status Last Admin Dose Admin Ondansetron HCl 4 mg Q4HP PRN IV 02/16/24 00:45 02/20/24 14:17 4 MG Morphine Sulfate 2 mg Q4HPRN PRN IV 02/16/24 00:45 02/19/24 21:11 2 MG Nitroglycerin 0.4 mg Q5MINP PRN SL 02/16/24 06:00 Morphine Sulfate 2 mg Q30M PRN IV 02/16/24 06:00 Enoxaparin Sodium 40 mg DAILY SC 02/17/24 10:00 02/20/24 09:54 40 MG Morphine Sulfate 2 mg Q2HPRN PRN IV 02/16/24 11:30 Pantoprazole Sodium 40 mg DAILY IV 02/17/24 10:00 02/20/24 09:54 40 MG Dextrose 1,000 ml @ 75 mls/hr [id number] IV 02/18/24 15:45 02/20/24 01:20 75 MLS/HR Amino Acids 0 ml @ 0 mls/hr PER PHARMACY IV 02/19/24 10:30 Diagnostic Test (Pha) 1 strip Q6HR 02/19/24 12:00 Insulin Human Regular FOLLOW SLIDING SCALE Q6HR SC 02/19/24 12:00 Dextrose 50 ml UD IV 02/19/24 11:00 Enalaprilat 0.625 mg Q6HR IV 02/20/24 12:00 02/20/24 15:37 0.625 MG Amino Acids/ Electrolytes/ Dextrose 1,000 ml @ 41 mls/hr DAILY@2200 IV 02/20/24 22:00 02/21/24 21:59 Sodium Chloride 10 ml QSHIFT@10,22 IV 02/20/24 22:00 Examination AFVSS. Abdomen soft, ND and NT. NGT with bilious fuid within canister. laboratory and microbiology Laboratory Tests 02/20/24 05:35 02/19/24 05:00 Test 02/20/24 05:35 Range/Units Serum Glucose 94 74-106 mg/dL Problem List/Assessment/Plan Problem List/Assessment/Plan NPO, IVF, NGT decompression, DVT and GI prophylaxis. TPN. Awaiting Txf ro [facility] under the care of Dr. Urena. Lopressor 2.5 mg IV q 6 for HTN. Will get AXR to assess progression or lack thererof. Plan discussed with: Patient My Orders My Orders Orders - MARIBEL MARIE MD Procedure Category Date Status Time Renal Function Test LAB 02/21/24 Verified 04:00 Phosphorus LAB 02/21/24 Verified 04:00 Tpn Per Pharmacy MICHAEL 02/20/24 In Process 22:00 Amino Acid Infusion PHA 02/20/24 In Process In D10w (Clinimix 4. 22:00 Kub Abdomen Single XY 02/20/24 Logged View 20:10 Dietary Evaluation Review Comments: Pt is NPO d/t SBO, and pending for trasfer for surgery. Recommend diet advancement after the surgery. Expected Outcomes/Goals: Meet his energy needs at 75% minimum. MARIBEL MARIE MD Feb 20, 2024 20:20
[2024-02-20] MEDS: AMINO ACID INFUSION IN D10W 1,000 ML IV SCH (21:40)
[2024-02-20] MEDS: SODIUM CHLOR 0.9% PF (SALINE LOCK) 10ML VIAL/SYR IV SCH (23:02)
[2024-02-21] VITALS (7 sets, daily range): BP systolic 133–148; BP diastolic 64–84; PULSE 60–77; RESP 17–92; TEMP 97.2–98.4; O2SAT 92–94
[2024-02-21 06:16] LABS: Potassium 3.3 mmol/L (3.5-5.1)
[2024-02-21 06:18] LABS: Calcium 9.3 mg/dL (8.7-10.4)
[2024-02-21 06:22] LABS: BUN/Creatinine Ratio 7.4 (10.0-20.0)
[2024-02-21 06:24] LABS: Albumin 4.3 g/dL (3.2-4.8)
[2024-02-21 06:25] LABS: Phosphorus 3.6 mg/dL (2.4-5.1)
--- NOTE | 2024-02-21 09:10 | DVH ---
Date: 02/21/2024 08:27 AM Examination: XY KUB ABDOMEN SINGLE VIEW History: SBO Comparison: None TECHNIQUE: Frontal views of the abdomen was obtained. FINDINGS: Bowel gas pattern is unremarkable. The lung bases are unremarkable. No acute osseous abnormality identified. NG tube in stomach. IMPRESSION: Nonobstructive bowel gas pattern.
--- NOTE | 2024-02-21 09:17 | DVHPN2 ---
Progress Note Date Seen: Feb 21, 2024 Medical Necessity Reason Pt with a Central, PICC or Fol: Yes The following are medically ne: PICC Line Subjective Review of Systems Pt seen earlier this AM. He was sleeping comfortably in bed. Denies pain, N/V or BM. Admits to passing flatus. Objective vital signs Vital Sign Date Time Temp Pulse Resp B/P (MAP) Pulse Ox O2 Delivery O2 Flow Rate FiO2 02/21/24 08:05 98.3 60 18 134/74 (94) 92 98.3 02/20/24 20:00 Room Air* 0 21 Total Intake and Output 02/20/24 02/20/24 02/21/24 15:00 23:00 07:00 Intake Total 0 ml 0 ml Output Total 100 ml 325 ml Balance -100 ml -325 ml medications Current Medications Medications Dose Ordered Sig/Charles Route Start Time Stop Time Status Last Admin Dose Admin Ondansetron HCl 4 mg Q4HP PRN IV 02/16/24 00:45 02/20/24 20:29 4 MG Morphine Sulfate 2 mg Q4HPRN PRN IV 02/16/24 00:45 02/20/24 20:22 2 MG Nitroglycerin 0.4 mg Q5MINP PRN SL 02/16/24 06:00 Morphine Sulfate 2 mg Q30M PRN IV 02/16/24 06:00 Enoxaparin Sodium 40 mg DAILY SC 02/17/24 10:00 02/20/24 09:54 40 MG Morphine Sulfate 2 mg Q2HPRN PRN IV 02/16/24 11:30 Pantoprazole Sodium 40 mg DAILY IV 02/17/24 10:00 02/20/24 09:54 40 MG Dextrose 1,000 ml @ 75 mls/hr [id number] IV 02/18/24 15:45 02/20/24 01:20 75 MLS/HR Amino Acids 0 ml @ 0 mls/hr PER PHARMACY IV 02/19/24 10:30 Diagnostic Test (Pha) 1 strip Q6HR 02/19/24 12:00 02/21/24 06:00 1 STRIP Insulin Human Regular FOLLOW SLIDING SCALE Q6HR SC 02/19/24 12:00 Dextrose 50 ml UD IV 02/19/24 11:00 Enalaprilat 0.625 mg Q6HR IV 02/20/24 12:00 02/21/24 06:00 0.625 MG Amino Acids/ Electrolytes/ Dextrose 1,000 ml @ 41 mls/hr DAILY@2200 IV 02/20/24 22:00 02/21/24 21:59 02/20/24 21:40 41 MLS/HR Sodium Chloride 10 ml QSHIFT@10,22 IV 02/20/24 22:00 02/20/24 23:02 10 ML Examination Abdomen soft, ND and NT. NGT with minimal bilious fluid within. Canister empty. AXR no evidence of SBO. Gas within colon laboratory and microbiology Laboratory Tests 02/21/24 05:00 02/19/24 05:00 Test 02/21/24 05:00 Range/Units Serum Glucose 94 74-106 mg/dL Labs and/or images reviewed: Labs reviewed by me Problem List/Assessment/Plan Problem List/Assessment/Plan NPO, IVF, NGT decompression, DVT and GI prophylaxis. TPN. Gastrografin SBS. Will review images and determine course of action. Continue with Txfr plans to [facility] under the care of Dr. Urena. Plan discussed with: Patient My Orders My Orders Orders - MARIBEL MARIE MD Procedure Category Date Status Time Tpn Per Pharmacy MICHAEL 02/20/24 In Process 22:00 Amino Acid Infusion PHA 02/20/24 In Process In D10w (Clinimix 4. 22:00 Kub Abdomen Single XY 02/21/24 Resulted View 06:52 Dietary Evaluation Review Comments: Pt is NPO d/t SBO, and pending for trasfer for surgery. Recommend diet advancement after the surgery. Expected Outcomes/Goals: Meet his energy needs at 75% minimum. MARIBEL MARIE MD Feb 21, 2024 09:17
[2024-02-21] MEDS ORDERED: GASTROGRAFIN 120 ML SOL ONE (09:30)
--- NOTE | 2024-02-21 11:47 | DVH ---
Procedure: XY SMALL BOWEL SERIES-W GASTROGRA Exam Date: 02/21/2024 09:43 AM Reason for study/Clinical History: SBO Comparison Study: None available at time of dictation. Technique: Single contrast small bowel series performed. Findings: Initial claims counsel view of the abdomen and pelvis appears demonstrates no acute process. Contrast is identified within the colon by 1 hr. This represents a normal small bowel transit time. Small bowel loops are normal in size. Normal mucosal pattern. No evidence of small bowel obstructi on, stricture, or mucosal abnormality. The terminal ileum is well visualized and is unremarkable. IMPRESSION: Normal small bowel series. END IMPRESSION:
[2024-02-21] MEDS: POTASSIUM CHL 20MEQ/100ML 100 ML IV SCH (12:00)
--- NOTE | 2024-02-21 18:11 | DVHPN2 ---
Subjective 53-year-old male with high-grade SBO, pending transferred to [facility], for surgical Oncology Patient pass flatus, strict n p.o. Still no bowel movement. Pending transfer. Discussed with surgeon and patient regarding his stay and plan. Patient will stay until a bed available for his transfer to [facility] for surgical oncology. Patient has been NPO for 4 days, we will start PICC line placement and TPN. Nutrition consult. We will start IV antihypertensive with enalapril at scheduled injection as patient is strict NPO. Risks and benefits discussed with patient and he expressed understanding. We sent bowel series today, pending clearance from surgery for discharge versus transferred to [facility] For more detail look at discharge summary 02/16/2024 Reviewed: Care Plan, H&P, Labs, Medications, Previous Orders, Radiology Changes from previous H/P or p: No Changes Eyes: No Pain, No Vision change, No Conjunctivae inflammation, No Eyelid inflammation, No Other, No Redness ENT: No Ear pain, No Ear discharge, No Nose pain, No Nose discharge, No Nose congestion, No Mouth pain, No Mouth swelling, No Throat pain, No Throat swelling, No Other Cardiovascular: No Chest Pain, No Palpitations, No Orthopnea, No Paroxysmal Noc. Dyspnea, No Edema, No Lt Headedness, No Other Respiratory: No Cough, No Dry, No Shortness of breath, No SOB with excertion, No Wheezing, No Hemoptysis, No Pleuritic Pain, No Sputum, No Other Gastrointestinal: Nausea, Vomiting, Abdominal Pain; No Diarrhea, No Constipation, No Melena, No Hematochezia, No Other Genitourinary: No Dysuria, No Frequency, No Incontinence, No Hematuria, No Retention, No Other Musculoskeletal: No other, No neck pain, No shoulder pain, No arm pain, No back pain, No hand pain, No leg pain, No foot pain Skin: No Rash, No Lesions, No Jaundice, No Bruising, No Other Objective Vitals Vital Signs Date Time Temp Pulse Resp B/P (MAP) Pulse Ox O2 Delivery O2 Flow Rate FiO2 02/21/24 16:54 97.2 71 18 137/78 (97) 94 97.2 02/21/24 08:00 Room Air* 0 21 Intake/Output Intake and Output 02/21/24 07:00 Intake Total 0 ml Output Total 425 ml Balance -425 ml Intake Oral 0 ml Output Urine Total 325 ml Gastric Drainage Total 100 ml # Voids 2 Exam Alert, oriented x3 PERRLA NG tube in place, to suction No JVD Clear breath sounds bilaterally S1-S2 regular rate and rhythm no murmur Abdomen distended, soft, nontender, bowel sounds normal Equal strength bilaterally on upper and lower extremities No lower extremity edema Medications Current Medications Medications Dose Ordered Sig/Charles Route Start Time Stop Time Status Last Admin Dose Admin Ondansetron HCl 4 mg Q4HP PRN IV 02/16/24 00:45 02/20/24 20:29 4 MG Morphine Sulfate 2 mg Q4HPRN PRN IV 02/16/24 00:45 02/20/24 20:22 2 MG Nitroglycerin 0.4 mg Q5MINP PRN SL 02/16/24 06:00 Morphine Sulfate 2 mg Q30M PRN IV 02/16/24 06:00 Enoxaparin Sodium 40 mg DAILY SC 02/17/24 10:00 02/21/24 10:00 40 MG Morphine Sulfate 2 mg Q2HPRN PRN IV 02/16/24 11:30 Pantoprazole Sodium 40 mg DAILY IV 02/17/24 10:00 02/21/24 10:00 40 MG Dextrose 1,000 ml @ 75 mls/hr [id number] IV 02/18/24 15:45 02/20/24 01:20 75 MLS/HR Amino Acids 0 ml @ 0 mls/hr PER PHARMACY IV 02/19/24 10:30 Diagnostic Test (Pha) 1 strip Q6HR 02/19/24 12:00 02/21/24 17:48 1 STRIP Insulin Human Regular FOLLOW SLIDING SCALE Q6HR SC 02/19/24 12:00 Dextrose 50 ml UD IV 02/19/24 11:00 Enalaprilat 0.625 mg Q6HR IV 02/20/24 12:00 02/21/24 12:00 0.625 MG Amino Acids/ Electrolytes/ Dextrose 1,000 ml @ 41 mls/hr DAILY@2200 IV 02/20/24 22:00 02/21/24 21:59 02/20/24 21:40 41 MLS/HR Sodium Chloride 10 ml QSHIFT@ IV 02/20/24 22:00 02/21/24 10:00 10 ML Fat Emulsion Intravenous 50 ml/ Potassium Chloride 40 meq/ Magnesium Sulfate 4 meq/ Multivitamins 10 ml/Chromium/ Copper/Manganese/ Zinc 1 ml/Amino Acids/Dextrose/ Purified Water 932 ml @ 39 mls/hr [id number] IV 02/21/24 22:00 02/22/24 21:59 Laboratory Results Laboratory Tests 02/19/24 05:00 02/21/24 05:00 Chemistry Test 02/21/24 05:00 Albumin 4.3 g/dL (3.2-4.8) Calcium Level 9.3 mg/dL (8.7-10.4) Phosphorus Level 3.6 mg/dL (2.4-5.1) Assessment/Plan Assessment/Plan Desmoid tumor High-grade SBO Hypertension Transferred to [facility] for surgicalz Oncology [facility] physician Dr. Guidry Pending bed Keep NG tube to low intermittent suction Strict NPO Start TPN Consult PICC Consult nutrition Start enalaprilat at 0.625 q.6 scheduled Informed hospitalist if blood pressure above 170 SBP Surgical consult appreciated bowel series reviewed, normal Plan discussed with: Patient My Orders Orders - JASON TARANGO MD Procedure Category Date Status Time Potassium Chl [place] PHA 02/21/24 Transmitted KCL 18:15 Date of Service: Feb 21, 2024 Billing Provider: JASON TARANGO MD Common Visit Codes: [id number] INP/OBS CARE(HIGH) JASON TARANGO MD Feb 21, 2024 18:11
[2024-02-21] MEDS ORDERED: POTASSIUM CHL 20MEQ/100ML 100 ML IV SCH (18:15)
[2024-02-21] MEDS: TPN PER PHARMACY IV NR (21:42)
[2024-02-22] VITALS (8 sets, daily range): BP systolic 125–148; BP diastolic 69–83; PULSE 61–80; RESP 17–20; TEMP 97.9–98.4; O2SAT 92–97
[2024-02-22 06:57] LABS: Alanine Aminotransferase 57 U/L (7-40); Albumin 4.4 g/dL (3.2-4.8); Alkaline Phosphatase 57 U/L (46-116); Anion Gap 8 (5-15); Aspartate Aminotransferase 34 U/L (13-40); BUN/Creatinine Ratio 8.5 (10.0-20.0); Blood Urea Nitrogen 10 mg/dL (9-23); Calcium 9.5 mg/dL (8.7-10.4); Carbon Dioxide 26 mmol/L (20-31); Chloride 107 mmol/L (98-107); Glucose 108 mg/dL (74-106); Magnesium 2.3 mg/dL (1.6-2.6); Phosphorus 3.6 mg/dL (2.4-5.1); Potassium 3.5 mmol/L (3.5-5.1); Sodium 141 mmol/L (136-145)
[2024-02-22 06:58] LABS: Bilirubin, Total 1.6 mg/dL (0.2-1.0); Total Protein 7.2 g/dL (5.7-8.2)
--- NOTE | 2024-02-22 12:05 | DVH ---
Exam: XY KUB ABDOMEN SINGLE VIEW Indication: SBO Comparison: XY KUB ABDOMEN SINGLE VIEW on DOS: 02/21/24 Technique: 1 radiographic views of the abdomen. Findings: Enteric contrast in the colon. Nonspecific bowel-gas pattern. There is no definite evidence for pneumoperitoneum. No abnormal calcifications noted. Impression: Nonspecific bowel-gas pattern. Enteric contrast in the colon.
--- NOTE | 2024-02-22 12:15 | DVHPN2 ---
Progress Note Date Seen: Feb 22, 2024 Medical Necessity Reason Pt with a Central, PICC or Fol: Yes The following are medically ne: PICC Line Subjective Review of Systems Pt found sitting comfortably at edge of the bed. NGT clamped as he had just returned from the bathroom after having a bowel movement. He feels well. Denies nausea or vomiting at this moment. Remains with some mild nausea episodes. Admits to passing flatus. Objective vital signs Vital Sign Date Time Temp Pulse Resp B/P (MAP) Pulse Ox O2 Delivery O2 Flow Rate FiO2 02/22/24 09:20 98.4 62 18 138/70 (92) 94 98.4 02/22/24 08:00 Room Air* 0 21 Total Intake and Output 02/21/24 02/21/24 02/22/24 15:00 23:00 07:00 Intake Total 100 ml 325 ml 0 ml Output Total 500 ml Balance 100 ml 325 ml -500 ml medications Current Medications Medications Dose Ordered Sig/Charles Route Start Time Stop Time Status Last Admin Dose Admin Ondansetron HCl 4 mg Q4HP PRN IV 02/16/24 00:45 02/22/24 01:20 4 MG Morphine Sulfate 2 mg Q4HPRN PRN IV 02/16/24 00:45 02/22/24 01:21 2 MG Nitroglycerin 0.4 mg Q5MINP PRN SL 02/16/24 06:00 Morphine Sulfate 2 mg Q30M PRN IV 02/16/24 06:00 Enoxaparin Sodium 40 mg DAILY SC 02/17/24 10:00 02/22/24 10:01 40 MG Morphine Sulfate 2 mg Q2HPRN PRN IV 02/16/24 11:30 Pantoprazole Sodium 40 mg DAILY IV 02/17/24 10:00 02/22/24 10:00 40 MG Amino Acids 0 ml @ 0 mls/hr PER PHARMACY IV 02/19/24 10:30 Diagnostic Test (Pha) 1 strip Q6HR 02/19/24 12:00 02/22/24 06:24 1 STRIP Insulin Human Regular FOLLOW SLIDING SCALE Q6HR SC 02/19/24 12:00 Dextrose 50 ml UD IV 02/19/24 11:00 Enalaprilat 0.625 mg Q6HR IV 02/20/24 12:00 02/22/24 06:24 0.625 MG Sodium Chloride 10 ml QSHIFT@10,22 IV 02/20/24 22:00 02/22/24 10:05 10 ML Fat Emulsion Intravenous 50 ml/ Potassium Chloride 40 meq/ Magnesium Sulfate 4 meq/ Multivitamins 10 ml/Chromium/ Copper/Manganese/ Zinc 1 ml/Amino Acids/Dextrose/ Purified Water 932 ml @ 39 mls/hr [id number] IV 02/21/24 22:00 02/22/24 21:59 02/21/24 21:42 39 MLS/HR Fat Emulsion Intravenous 100 ml/Sodium Acetate 20 meq/Sodium Phosphate 20 meq/ Potassium Phosphate 44 meq/ Magnesium Sulfate 4 meq/ Multivitamins 10 ml/Chromium/ Copper/Manganese/ Zinc 1 ml/Amino Acids/Dextrose 1,087 ml @ 45 mls/hr [id number] IV 02/22/24 22:00 02/23/24 21:59 Examination AFVSS. Abdomen soft, obese, NT and ND. NGT canister with bilious fluid within. SBS demonstrated passage of contrast into colon. Mildly dilated loops of SB on left side, possible PSBO. Ordered follwo up AXR today, no residual dilated SB or contrast within GI tract. laboratory and microbiology Laboratory Tests 02/22/24 05:40 02/19/24 05:00 Test 02/22/24 05:40 Range/Units Serum Glucose 108 H 74-106 mg/dL Labs and/or images reviewed: Labs reviewed by me Problem List/Assessment/Plan Problem List/Assessment/Plan Clamp NGT. CLD trial, DVT and GI prophylaxis. If tolerates D/C TPN. AXR tomorrow. Aspiration precautions. If doesnt tolerate CLD, will place NPO and continue NGT decompression. Continue with Txfr plans to [facility] under the care of Dr. Urena. Plan discussed with: Patient, Other (RN) My Orders My Orders Orders - MARIBEL MARIE MD Procedure Category Date Status Time Amino Acid PHA 02/21/24 In Process Infusion... W/Fat 22:00 Tpn Per Pharmacy MICHAEL 02/21/24 In Process 22:00 Amino Acid PHA 02/22/24 In Process Infusion... W/Fat 22:00 Kub Abdomen Single XY 02/22/24 Resulted View 11:25 Comprehensive LAB 02/23/24 Verified Metabolic Panel 04:00 Magnesium LAB 02/23/24 Verified 04:00 Phosphorus LAB 02/23/24 Verified 04:00 Tpn Per Pharmacy MICHAEL 02/22/24 In Process 22:00 Clear Liq Diet DIET 02/22/24 Transmitted Lunch Dietary Evaluation Review Comments: Pt is NPO d/t SBO, and pending for trasfer for surgery. Recommend diet advancement after the surgery. Expected Outcomes/Goals: Meet his energy needs at 75% minimum. MARIBEL MARIE MD Feb 22, 2024 12:15
[2024-02-22] MEDS: diphenhdrAMINE HCL 50 MG/1 ML VL IM ONE (18:16)
--- NOTE | 2024-02-22 21:51 | DVHPN2 ---
Subjective 53-year-old male with high-grade SBO, pending transferred to [facility], for surgical Oncology Patient pass flatus, strict n p.o. Still no bowel movement. Pending transfer. Discussed with surgeon and patient regarding his stay and plan. Patient will stay until a bed available for his transfer to [facility] for surgical oncology. Patient has been NPO for 4 days, we will start PICC line placement and TPN. Nutrition consult. We will start IV antihypertensive with enalapril at scheduled injection as patient is strict NPO. Risks and benefits discussed with patient and he expressed understanding. Bowel series was passed yesterday 02/20, surgery is following. Patient is still need transfer to [facility], transferred to [facility] For more detail look at discharge summary 02/16/2024 Reviewed: Care Plan, H&P, Labs, Medications, Previous Orders, Radiology Changes from previous H/P or p: No Changes General: Per HPI Eyes: No Pain, No Vision change, No Conjunctivae inflammation, No Eyelid inflammation, No Other, No Redness ENT: No Ear pain, No Ear discharge, No Nose pain, No Nose discharge, No Nose congestion, No Mouth pain, No Mouth swelling, No Throat pain, No Throat swelling, No Other Cardiovascular: No Chest Pain, No Palpitations, No Orthopnea, No Paroxysmal Noc. Dyspnea, No Edema, No Lt Headedness, No Other Respiratory: No Cough, No Dry, No Shortness of breath, No SOB with excertion, No Wheezing, No Hemoptysis, No Pleuritic Pain, No Sputum, No Other Gastrointestinal: Nausea, Vomiting, Abdominal Pain; No Diarrhea, No Constipation, No Melena, No Hematochezia, No Other Genitourinary: No Dysuria, No Frequency, No Incontinence, No Hematuria, No Retention, No Other Musculoskeletal: No other, No neck pain, No shoulder pain, No arm pain, No back pain, No hand pain, No leg pain, No foot pain Skin: No Rash, No Lesions, No Jaundice, No Bruising, No Other Objective Vitals Vital Signs Date Time Temp Pulse Resp B/P (MAP) Pulse Ox O2 Delivery O2 Flow Rate FiO2 02/22/24 21:00 98.1 76 20 148/83 (104) 97 98.1 02/22/24 08:00 Room Air* 0 21 Intake/Output Intake and Output 02/22/24 07:00 Intake Total 425 ml Output Total 500 ml Balance -75 ml Intake Oral 225 ml IV Total 200 ml Output Urine Total 500 ml # Voids 1 # Bowel Movements 3 Exam Alert, oriented x3 PERRLA NG tube in place, unplugged from suction No JVD Clear breath sounds bilaterally S1-S2 regular rate and rhythm no murmur Abdomen distended, soft, nontender, bowel sounds faint Equal strength bilaterally on upper and lower extremities No lower extremity edema Medications Current Medications Medications Dose Ordered Sig/Charles Route Start Time Stop Time Status Last Admin Dose Admin Ondansetron HCl 4 mg Q4HP PRN IV 02/16/24 00:45 02/22/24 01:20 4 MG Morphine Sulfate 2 mg Q4HPRN PRN IV 02/16/24 00:45 02/22/24 16:57 2 MG Nitroglycerin 0.4 mg Q5MINP PRN SL 02/16/24 06:00 Morphine Sulfate 2 mg Q30M PRN IV 02/16/24 06:00 Enoxaparin Sodium 40 mg DAILY SC 02/17/24 10:00 02/22/24 10:01 40 MG Morphine Sulfate 2 mg Q2HPRN PRN IV 02/16/24 11:30 Pantoprazole Sodium 40 mg DAILY IV 02/17/24 10:00 02/22/24 10:00 40 MG Amino Acids 0 ml @ 0 mls/hr PER PHARMACY IV 02/19/24 10:30 Diagnostic Test (Pha) 1 strip Q6HR 02/19/24 12:00 02/22/24 17:21 1 STRIP Insulin Human Regular FOLLOW SLIDING SCALE Q6HR SC 02/19/24 12:00 Dextrose 50 ml UD IV 02/19/24 11:00 Enalaprilat 0.625 mg Q6HR IV 02/20/24 12:00 02/22/24 17:40 0.625 MG Sodium Chloride 10 ml QSHIFT@ IV 02/20/24 22:00 02/22/24 10:05 10 ML Fat Emulsion Intravenous 50 ml/ Potassium Chloride 40 meq/ Magnesium Sulfate 4 meq/ Multivitamins 10 ml/Chromium/ Copper/Manganese/ Zinc 1 ml/Amino Acids/Dextrose/ Purified Water 932 ml @ 39 mls/hr [id number] IV 02/21/24 22:00 02/22/24 21:59 02/21/24 21:42 39 MLS/HR Fat Emulsion Intravenous 100 ml/Sodium Acetate 20 meq/Sodium Phosphate 20 meq/ Potassium Phosphate 44 meq/ Magnesium Sulfate 4 meq/ Multivitamins 10 ml/Chromium/ Copper/Manganese/ Zinc 1 ml/Amino Acids/Dextrose 1,087 ml @ 45 mls/hr [id number] IV 02/22/24 22:00 02/23/24 21:59 Laboratory Results Laboratory Tests 02/19/24 05:00 02/22/24 05:40 Chemistry Test 02/22/24 05:40 Albumin 4.4 g/dL (3.2-4.8) Calcium Level 9.5 mg/dL (8.7-10.4) Magnesium Level 2.3 mg/dL (1.6-2.6) Phosphorus Level 3.6 mg/dL (2.4-5.1) Total Protein 7.2 g/dL (5.7-8.2) LFT Test 02/22/24 05:40 Alanine Aminotransferase (ALT) 57 U/L (7-40) H Alkaline Phosphatase 57 U/L (46-116) Aspartate Amino Transferase (AST) 34 U/L (13-40) Total Bilirubin 1.6 mg/dL (0.2-1.0) H Labs and/or images reviewed: Labs reviewed by me, Image(s) reviewed by me Assessment/Plan Assessment/Plan Desmoid tumor High-grade SBO Hypertension Transferred to [facility] for surgical Oncology Accepting physician Dr. Guidry Pending bed Bowel series passed on 02/20. Defer removal of NG tube to surgery Diet advance to CLD Plan to Hold off TPN if tolerating CLD Consult PICC Consult nutrition Start enalaprilat at 0.625 q.6 scheduled Inform hospitalist if blood pressure above 170 SBP Surgical consult appreciated Plan discussed with: Patient Date of Service: Feb 22, 2024 Billing Provider: MIGUELANGEL CAMARA MD Common Visit Codes: [id number] INP/OBS CARE(MOD) MIGUELANGEL CAMARA MD Feb 22, 2024 21:50
[2024-02-22] MEDS ORDERED: TPN PER PHARMACY IV NR (22:00)
[2024-02-23] VITALS (8 sets, daily range): BP systolic 134–159; BP diastolic 69–78; PULSE 56–84; RESP 17–20; TEMP 97.9–98.4; O2SAT 91–97
[2024-02-23] MEDS: TPN PER PHARMACY IV NR (00:12)
--- NOTE | 2024-02-23 05:21 | DVH ---
Exam: XY KUB ABDOMEN SINGLE VIEW Indication: SBO Comparison: XY KUB ABDOMEN SINGLE VIEW on DOS: 02/22/24, XY KUB ABDOMEN SINGLE VIEW on DOS: 02/21/24 Technique: 2 radiographic views of the abdomen. Findings: Nonspecific bowel-gas pattern with paucity of visualized small bowel loops and air-filled distention of the colon. There is no definite evidence for pneumoperitoneum. No abnormal calcifications noted. Impression: Nonspecific bowel-gas pattern.
[2024-02-23 07:01] LABS: Alanine Aminotransferase 47 U/L (7-40); Albumin 4.5 g/dL (3.2-4.8); Alkaline Phosphatase 59 U/L (46-116); Anion Gap 8 (5-15); Aspartate Aminotransferase 25 U/L (13-40); BUN/Creatinine Ratio 7.6 (10.0-20.0); Blood Urea Nitrogen 9 mg/dL (9-23); Calcium 9.2 mg/dL (8.7-10.4); Carbon Dioxide 26 mmol/L (20-31); Chloride 105 mmol/L (98-107); Glucose 100 mg/dL (74-106); Magnesium 2.1 mg/dL (1.6-2.6); Phosphorus 3.8 mg/dL (2.4-5.1); Potassium 3.6 mmol/L (3.5-5.1); Sodium 139 mmol/L (136-145)
[2024-02-23 07:02] LABS: Bilirubin, Total 1.9 mg/dL (0.2-1.0)
[2024-02-23] MEDS ORDERED: TPN PER PHARMACY IV NR ×2 (08:00→22:00)
[2024-02-23] MEDS ORDERED: KETOROLAC TROMETH 30 MG/ML 1ML VIAL IV ONE (09:00)
--- NOTE | 2024-02-23 10:15 | DVHPN2 ---
Progress Note Date Seen: Feb 23, 2024 Medical Necessity Reason Pt with a Central, PICC or Fol: Yes The following are medically ne: PICC Line Subjective Review of Systems Pt feels well. Denies N/V. Admitted to passing flatus and having BM. Tolerating CLD Objective vital signs Vital Sign Date Time Temp Pulse Resp B/P (MAP) Pulse Ox O2 Delivery O2 Flow Rate FiO2 02/23/24 09:12 98.3 66 17 147/78 (101) 96 98.3 02/22/24 20:00 Room Air* 0 21 Total Intake and Output 02/22/24 02/22/24 02/23/24 15:00 23:00 07:00 Intake Total 450 ml 800 ml Output Total 650 ml Balance 450 ml 150 ml medications Current Medications Medications Dose Ordered Sig/Charles Route Start Time Stop Time Status Last Admin Dose Admin Ondansetron HCl 4 mg Q4HP PRN IV 02/16/24 00:45 02/22/24 01:20 4 MG Morphine Sulfate 2 mg Q4HPRN PRN IV 02/16/24 00:45 02/22/24 21:33 2 MG Nitroglycerin 0.4 mg Q5MINP PRN SL 02/16/24 06:00 Morphine Sulfate 2 mg Q30M PRN IV 02/16/24 06:00 Enoxaparin Sodium 40 mg DAILY SC 02/17/24 10:00 02/22/24 10:01 40 MG Morphine Sulfate 2 mg Q2HPRN PRN IV 02/16/24 11:30 Pantoprazole Sodium 40 mg DAILY IV 02/17/24 10:00 02/22/24 10:00 40 MG Amino Acids 0 ml @ 0 mls/hr PER PHARMACY IV 02/19/24 10:30 Diagnostic Test (Pha) 1 strip Q6HR 02/19/24 12:00 02/23/24 05:29 1 STRIP Insulin Human Regular FOLLOW SLIDING SCALE Q6HR SC 02/19/24 12:00 Dextrose 50 ml UD IV 02/19/24 11:00 Enalaprilat 0.625 mg Q6HR IV 02/20/24 12:00 02/23/24 05:28 0.625 MG Sodium Chloride 10 ml QSHIFT@ IV 02/20/24 22:00 02/22/24 22:00 10 ML Ampicillin Sodium/ Sulbactam Sodium 3 gm/Sodium Chloride 100 ml @ 100 mls/hr Q6H IV 02/23/24 09:00 Examination Abdomen soft, Nd and NT. Unbeknownst to me, NGT was removed laboratory and microbiology Laboratory Tests 02/23/24 05:37 02/19/24 05:00 Test 02/23/24 05:37 Range/Units Serum Glucose 100 74-106 mg/dL Labs and/or images reviewed: Labs reviewed by me, Image(s) reviewed by me Problem List/Assessment/Plan Problem List/Assessment/Plan May discharge from surgical standpoint. Pt instructed to F/U with Dr. Urena. If symptoms recurr, to go to [facility]. He understands and agrees. Plan discussed with: Patient My Orders My Orders Orders - MARIBEL MARIE MD Procedure Category Date Status Time Kub Abdomen Single XY 02/22/24 Resulted View 11:25 Tpn Per Pharmacy MICHAEL 02/22/24 In Process 22:00 Clear Liq Diet DIET 02/22/24 Transmitted Lunch Clamp Ngt ORDERS 02/22/24 Transmitted 12:08 Communication Order ORDERS 02/22/24 Transmitted 12:08 Kub Abdomen Single XY 02/23/24 Resulted View 07:00 Dietary Evaluation Review Comments: Pt is NPO d/t SBO, and pending for trasfer for surgery. Recommend diet advancement after the surgery. Expected Outcomes/Goals: Meet his energy needs at 75% minimum. MARIBEL MARIE MD Feb 23, 2024 10:15
[2024-02-23] MEDS: AMPICILLIN & SULBACTAM SODIUM 3 GM in SODIUM CHL 0.9% 100 ML IV SCH (12:22)
[2024-02-23] MEDS ORDERED: AUG875T PO (18:25)
[2024-02-23] MEDS ORDERED: ZOFR4T PO (18:25)
--- NOTE | 2024-02-23 18:28 | DVHDS2 ---
Discharge Summary Date of Admission Feb 16, 2024 at 05:55 Date of Discharge: Feb 16, 2024 Labs/Diagnostic Data: Laboratory Results Test 02/23/24 12:39 02/23/24 05:37 02/21/24 05:00 02/20/24 11:52 POC Glucose 114 mg/dl (70-106) Sodium Level 139 mmol/L (136-145) Potassium Level 3.6 mmol/L (3.5-5.1) Chloride Level 105 mmol/L (98-107) Carbon Dioxide Level 26 mmol/L (20-31) Anion Gap 8 (5-15) Blood Urea Nitrogen 9 mg/dL (9-23) Creatinine 1.18 mg/dL (0.700-1.30) Glomerular Filtration Rate Calc 75 mL/min (>90) BUN/Creatinine Ratio 7.6 (10.0-20.0) Serum Glucose 100 mg/dL (74-106) Calcium Level 9.2 mg/dL (8.7-10.4) Phosphorus Level 3.8 mg/dL (2.4-5.1) Magnesium Level 2.1 mg/dL (1.6-2.6) Total Bilirubin 1.9 mg/dL (0.2-1.0) Aspartate Amino Transferase (AST) 25 U/L (13-40) Alanine Aminotransferase (ALT) 47 U/L (7-40) Alkaline Phosphatase 59 U/L (46-116) Total Protein 7.0 g/dL (5.7-8.2) Albumin 4.5 g/dL (3.2-4.8) Estimated GFR () 93 mL/min Estimated GFR (Non- 77 mL/min Prothrombin Time 11.9 sec (9.3-11.8) Prothrombin Time INR 1.13 (0.9-1.15) Activated Partial Thromboplast Time 32.2 SEC (24.5-34.5) Test 02/20/24 05:35 02/19/24 05:00 02/15/24 20:34 Triglycerides Level 95 mg/dL (< 150) White Blood Count 6.2 10^3/uL (4.4-10.8) Red Blood Count 7.01 10^6/uL (4.5-5.90) Hemoglobin 16.6 g/dL (13.5-17.5) Hematocrit 51.7 % (41.0-53.0) Mean Corpuscular Volume 73.7 fL (80.0-100.0) Mean Corpuscular Hemoglobin 23.6 pg (28.0-32.0) Mean Corpuscular Hemoglobin Concent 32.0 g/dL (32.0-36.0) Red Cell Distribution Width 18.9 % (11.8-14.3) Platelet Count 276 10^3/uL (140-450) Mean Platelet Volume 8.2 fL (6.9-10.8) Neutrophils (%) (Auto) 60.7 % (37.0-80.0) Lymphocytes (%) (Auto) 20.8 % (10.0-50.0) Monocytes (%) (Auto) 8.5 % (0.0-12.0) Eosinophils (%) (Auto) 9.0 % (0.0-7.0) Basophils (%) (Auto) 1.0 % (0.0-2.0) Neutrophils # (Auto) 3.8 10 ^3/uL (1.6-8.6) Lymphocytes # (Auto) 1.3 10 ^3/uL (0.4-5.4) Monocytes # (Auto) 0.5 10 ^3/uL (0-1.3) Eosinophils # (Auto) 0.6 10 ^3/uL (0-0.8) Basophils # (Auto) 0.1 10 ^3/uL (0-0.2) Nucleated Red Blood Cells 0.2 % Lipase 33 U/L (12-53) Other Laboratory Tests 02/23/24 05:37 02/19/24 05:00 Brief Hx & Hospital Course: 53-year-old male w PMHx HTN, 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 Patient was admitted here last February 08, 2024 for the same symptoms, being followed by a surgeon at [facility]. Patient reports symptoms progressively get worse with diffuse abdominal pain, associated nausea, vomiting, rating pain 10/10 numeric scale, getting worse that prompted this visit. LEs show leukocytosis of 15.9; Abdomen/pelvis CT revealing persistent small-bowel obstruction of a mid to distal segment of small bowel with transition point in the mid abdomen to the left of midline; there is focal wall thickening at transition point for which a small bowel mass is a possibility.m esenteric mass with lobulated and spiculated portions and containing calcification which could reflect a carcinoid tumor metastasis.. She was admitted for SBO, antibiotic Flagyl but upgraded to Unasyn. Surgery consulted and given complex nature of the case (history of desmoid tumor, CT showing possibility tumor Mets near SBO transition point) patient is regimen for transfer to [facility] for surgical oncology. Patient is accepted for transfer and is pending bed. Patient is unable to tolerate diet and was put on TPN via PICC line for approximately 2-3 days. IV medications started for hypertension, enalaprilat. SB series done 02/20 and patient passes contrast inappropriate time. NG tube removed on 02/22, surgery follows and he was patient for discharge as he was tolerating CLD. As patient is tolerating p.o. he can continue all his p.o. meds for his chronic conditions. Plan for discharge developed what surgery , see plan below. Diagnosis: High-grade SBO (resolved) , Desmoid tumor , concern for metastatic disease, Hypertension discharge plan - SBO resolving. cleared for dc by surgery - augmentin 10 days - zofran prn for nausea - full liquid diet x 4 weeks, until surgery outpatient follow-up appointment - f/u with PCP for discharge review - discharge clinic to reassess bowel function. Visitation and planning required 35 minutes Condition at Discharge: Fair Final Diagnosis/Problems List SBO Secondary Diagnosis: Polycythemia vera Microcytosis Leukocytosis Transaminitis Discharge Disposition: Home SNF Discharge Reason For Transfer: Higher level of care Discharge Instruct/Medications Diet: See Comment Diet comment: NPO Activity: See Comment Follow Up/Referral: PCP, surgery Medications: as below. Discharge Statement: "Patient was advised to return to the ER or call 911 if any headaches, dizziness, shortness of breath, chest pain, abdominal pain, bleeding, fevers, or worsening of medical condition. Patient was counseled about treatment plan, medications, possible side effects, patientverbalized understanding. All questions were answered to the best of my ability. This discharge took greater then 30 minutes in planning, reviewing documentation, counseling the patient, and discussing with other team members." ASSESSMENT ASSESSMENT Assessment High-grade SBO (resolved) , Desmoid tumor , concern for metastatic disease, Hypertension Date of Service: Feb 23, 2024 Billing Provider: MIGUELANGEL CAMARA MD Common Visit Codes: 30177-MEP/OBS DISCH DAY >30min MIGUELANGEL CAMARA MD Feb 23, 2024 18:28
== END 2024-02-23 20:20 | disposition home or self-care (01) | DRG 844 ==
LOC: EDUNIT# 20:20 → ER 20:20 → EDBD 20:20 → TELE 02-16 05:55 → TELE-EAST 02-16 12:10
PROVIDERS: ADMIT Student in an Organized Health Care Education/Training Program; ATTEND Student in an Organized Health Care Education/Training Program
PROC: 0D9670Z Drainage of Stomach with Drainage Device, Via Natural or Artificial Opening (ICD-10-PCS; principal; 2024-02-16)
PROC: 05HB33Z Insertion of Infusion Device into Right Basilic Vein, Percutaneous Approach (ICD-10-PCS; 2024-02-20)
PROC: B54MZZA Ultrasonography of Right Upper Extremity Veins, Guidance (ICD-10-PCS; 2024-02-20)
DX: C7B.09 Secondary carcinoid tumors of other sites (principal); K56.609 Unspecified intestinal obstruction, unspecified as to partial versus complete obstruction; K86.3 Pseudocyst of pancreas; D48.119 Desmoid tumor of unspecified site; I10 Essential (primary) hypertension; E66.9 Obesity, unspecified; D45 Polycythemia vera; D72.829 Elevated white blood cell count, unspecified; R09.02 Hypoxemia; R74.01 Elevation of levels of liver transaminase levels; Z91.040 Latex allergy status; Z79.899 Other long term (current) drug therapy; Z68.37 Body mass index [BMI] 37.0-37.9, adult
CPT/HCPCS: 36415; 36569; 71045; 74018; 74177; 74250; 80048; 80053; 80069; 82962; 83690; 83735; 84100; 84478; 85025; 85610; 85730; 99291; G0378; J2405; J2470; J3480; J3490; J7131